=== PATIENT | female | born 1940 | race Caucasian/White ===

== ENCOUNTER 2018-01-03 00:53 | Inpatient (IN) | payer OTHER, MEDICARE ==
[~2018-01-03] VITALS: Ht 157.5 cm; Wt 76.0 kg
--- NOTE | 2018-01-03 01:01 | ED AMS/SEIZURE/WEAK/DIZZY ---
History of Present Illness General Chief Complaint: General Adult Stated Complaint: DOUGLASS, AMS, TROUBLE SPEAKING PER DAUGHTER Source: patient Exam Limitations: no limitations Vital Signs & Intake/Output Vital Signs & Intake/Output Vital Signs Date Time Temp Pulse Resp B/P B/P Pulse O2 O2 Flow FiO2 Mean Ox Delivery Rate 01/03 0308 98.3 01/03 0245 67 18 155/69 100 Room Air 01/03 0224 80 18 166/74 98 Room Air 01/03 0151 80 18 165/77 99 Room Air 01/03 0100 99 Room Air 01/03 0100 98.3 82 18 176/77 98 Room Air Allergies Coded Allergies: No Known Allergies (01/03/18) Reconcile Medications Aspirin/Acetaminophen/Caffeine (Excedrin Extra Strength Caplet) 250 MG-250 MG-65 MG TABLET 2 TAB PO PRN PRN HEADACHE (Reported) Dicyclomine Hydrochloride (Bentyl) 10 MG/ML AMPUL 20 MG PO DAILY (Reported) Diphenoxylate HCl/Atropine (Lomotil 2.5-0.025 MG Tablet) 2.5 MG-0.025 MG TABLET 1 TAB PO TID PRN STOMACH (Reported) Doxycycline Hyclate 20 MG TABLET LYME (Reported) Escitalopram Oxalate (Lexapro) 20 MG TABLET 1 TAB PO DAILY DEPRESSION ( Reported) Esomeprazole Magnesium (Nexium) 20 MG CAPSULE.DR 1 CAP PO DAILY GERD ( Reported) Folic Acid 1 MG TABLET 1 TAB PO DAILY SUPPLEMENT (Reported) LORazepam (Ativan) 1 MG TAB 1 TAB PO BID ANXIETY (Reported) Olmesartan/Amlodipin/Hcthiazid (Tribenzor 40-10-25 MG Tablet) 40 MG-10 MG-25 MG TABLET 1 TAB PO DAILY HTN (Reported) Prednisone 5 MG TAB.DS.PK 8 MG PO DAILY RA (Reported) Triage Nurses Notes Reviewed? yes Onset: Abrupt Duration: minute(s): Timing: single episode today Injury Environment: home Severity: moderate Modifying Factors: Improves With: rest. Associated Symptoms: DYSARTHRIA HPI: 77 YO WOMAN h/o polymyalgia rheumatica on steroids and methotrexate presents with several minute episode of dyarhthria and left arm weakness that began approximately 20 minutes prior to presentation and has largely self resolved. She notes also numbness in left arm and difficulty with comprehension which has since improved. She notes also occasional palpitations without chest pain or radiation. Her notes that for the past few weeks she has felt overall weakness and occasional confusion and headache. A few days ago, Dr. Bass discovered +lyme titers and she has been on doxy for the past several days. Past History Travel History Traveled to [place] past 21 day No Medical History Any Pertinent Medical History? see below for history Musculoskeletal: polymyalgia rheumatica Psychiatric: depression Surgical History Surgical History: non-contributory Psychosocial History What is your primary language Kazakh Family History Hx Contributory? No Review of Systems Review of Systems Constitutional: Reports: no symptoms. EENTM: Reports: no symptoms. Respiratory: Reports: no symptoms. Cardiovascular: Reports: no symptoms. GI: Reports: no symptoms. Genitourinary: Reports: no symptoms. Musculoskeletal: Reports: no symptoms. Skin: Reports: no symptoms. Neurological/Psychological: Reports: no symptoms. Hematologic/Endocrine: Reports: no symptoms. Immunologic/Allergic: Reports: no symptoms. All Other Systems: Reviewed and Negative Physical Exam Physical Exam General Appearance: well developed/nourished, no apparent distress Head: atraumatic, normal appearance Eyes: Bilateral: normal appearance, PERRL, EOMI. Ears, Nose, Throat: normal pharynx, normal ENT inspection Neck: normal inspection, supple, full range of motion Respiratory: normal breath sounds, chest non-tender, no respiratory distress, quiet respiration, lungs clear Cardiovascular: regular rate/rhythm Gastrointestinal: normal bowel sounds, soft, non-tender, no organomegaly Back: normal inspection, normal range of motion Extremities: normal range of motion Neurologic/Psych: awake, alert, oriented x 3, strength is symmetrical in upper and lower extremities. no dysarthria. speech is intelligible. no facial droop. Skin: intact, normal color, warm/dry Comments: dtr's are normal, light touch intact. Core Measures ACS in differential dx? No CVA/TIA Diagnosis Yes NIH Stroke Scale (24 Hours) NIH Stroke Scale (24 Hours) Response Value Level of Consciousness alert 0 LOC Questions answers both correctly 0 LOC Commands obeys both correctly 0 Best Gaze normal 0 Visual Barlow no visual loss 0 Facial Paresis normal 0 Motor Arm - Left no drift 0 Motor Arm - Right no drift 0 Motor Leg - Left no drift 0 Motor Leg - Right no drift 0 Limb Ataxia no ataxia 0 Sensory normal 0 Best Language no aphasia 0 Dysarthria normal articulation 0 Extinction and Inattention no neglect 0 Total 0 Date Last Known Well 01/03/18 tPA given? No Swallow Evaluation Pass Swallow eval date 01/03/18 Sepsis Present: No Sepsis Focused Exam Completed? No Progress Differential Diagnosis: tia, cva vs other. Plan of Care: Orders Procedure Date/time Status Nothing by Mouth 01/03 B Active Patient Data 01/03 025 Active Saline Lock 01/04 228 Active Misc Message 01/04 228 Active ED Holding Orders 01/04 228 Active Admit to inpatient 01/04 228 Active Vital Signs 01/04 228 Active Code Status 01/04 228 Active NIH Stroke Scale 01/03 0107 Active Intake & Output 01/03 005 Active TROPONIN LEVEL 01/03 58 Complete PARTIAL THROMBOPLASTIN TIME 01/03 58 Complete PROTHROMBIN TIME 01/03 58 Complete LIPASE 01/03 58 Complete HEPATIC FUNCTION PANEL 01/03 58 Complete CBC WITHOUT DIFFERENTIAL 01/03 58 Complete BASIC METABOLIC PANEL 01/03 58 Complete AMYLASE 01/03 58 Complete EKG 01/03 58 Active Current Medications Sig/Geoff Start time Last Medication Dose Stop Time Status Admin Potassium Chloride 10 MEQ ONCE ONE 01/03 0330 AC 01/03 0331 Acetaminophen 1,000 MG ONCE ONE 01/03 0300 UNVr 01/03 (Ofirmev) 01/03 0314 0308 N/A 1 UNIT (No Carrier) Laboratory Tests 01/03/18 0135: Anion Gap 16, Estimated GFR 37 L, BUN/Creatinine Ratio 14.3, Glucose 98, Calcium 9.5, Total Bilirubin 0.3, Direct Bilirubin 0.3, AST 21, ALT 25, Alkaline Phosphatase 64, Troponin I < 0.01, Total Protein 6.6, Albumin 3.9, Amylase 48, Lipase 83, PT 11.5, INR 1.05, APTT 28, CBC w Diff NO MAN DIFF REQ, RBC 3.93 L, MCV 91.2, MCH 30.9, MCHC 33.9, RDW 15.5 H, MPV 6.6 L, Gran % 78.8 H, Lymphocytes % 14.5 L, Monocytes % 6.3, Eosinophils % 0.3, Basophils % 0.1, Absolute Granulocytes 10.4 H, Absolute Lymphocytes 1.9, Absolute Monocytes 0.8 H, Absolute Eosinophils 0, Absolute Basophils 0 Diagnostic Imaging: Viewed by Me: CT Scan. Discussed w/RAD: CT Scan. Radiology Impression: PATIENT: MARTIN MCKENZIE PRESENT AGE: 77 PATIENT ACCOUNT NO: [id number] : 41 LOCATION: [facility] ORDERING PHYSICIAN: Dante Fry MD SERVICE DATE: 01/03/18 EXAM TYPE: CAT - CT HEAD WO IV CONTRAST EXAMINATION: CT HEAD WITHOUT CONTRAST CLINICAL INFORMATION: Left-sided weakness, difficulty finding words COMPARISON: None TECHNIQUE: Contiguous axial imaging was performed from the skull base to vertex without intravenous administration of contrast. DLP: 615.16 mGy-cm FINDINGS: There is no evidence of acute intracranial hemorrhage or territorial infarction. No abnormal mass effect or midline shift is seen. Carbajal to white matter differentiation is well preserved. No extra-axial fluid collections are identified. The ventricles are normal in size. Hypoattenuating foci in the bilateral basal ganglia favor chronic lacunar infarcts. Volume loss is noted. The osseous structures and soft tissues are normal. The mastoid air cells and visualized portions of the paranasal sinuses are well aerated. IMPRESSION: No acute intracranial pathology. This critical result was discussed with Dante Fry on 01/03/2018 1:34 AM, and it was ascertained that the content and urgency of the report was understood at the time of direct communication. DICTATED BY: Lizandro Meeks MD DATE/TIME DICTATED:01/03/18128 STAVE MILL HAND:AUREA DATE/TIME TRANSCRIBED:01/03/18128 CONFIDENTIAL, DO NOT COPY WITHOUT APPROPRIATE AUTHORIZATION. <Electronically signed in Other Vendor System> SIGNED BY: Lizandro Meeks MD 01/03/188, PATIENT: MARTIN MCKENZIE PRESENT AGE: 77 PATIENT ACCOUNT NO: [id number] : 41 LOCATION: [facility] ORDERING PHYSICIAN: Dante Fry MD SERVICE DATE: 01/03/18 EXAM TYPE: RAD - CT HEAD ANGIOGRAM; CT NECK ANGIOGRAM; XRY-PORTABLE CHEST XRAY EXAMINATION: CT ANGIOGRAM NECK AND HEAD CLINICAL INFORMATION: Left arm weakness, numbness COMPARISON: Noncontrast head CT from earlier today TECHNIQUE: Test bolus sequences followed by intravenous administration 95 mL of Optiray 320. Helical imaging was performed in the axial plane from the thoracic inlet to the skull vertex. Delayed postcontrast imaging of the head was also performed. The data was processed at the operating room technologist's workstation for generation of MIP sequences. Angled MIPs and volume rendered reformatted images were also generated at an offline 3D workstation. Stenoses are assessed in accordance with NASCET criteria unless otherwise indicated. DLP: 1196.95 mGy-cm FINDINGS: Neck CTA: There is a classic 3 vessel branching pattern of the aortic arch. There is atherosclerotic calcification along the aorta. No evidence of stenosis at the branch origins. Both vertebral arteries are patent throughout their extracranial cervical course. There is trace calcification at the right common carotid artery bifurcation without significant stenosis. There is calcification at the left common carotid artery bifurcation resulting in approximately 20% luminal narrowing. Otherwise normal appearance of the common and internal carotid arteries. Brain CTA: The right vertebral artery is dominant , and there is a focus of calcification along the intradural right vertebral artery. The left vertebral artery appears diminutive after the takeoff of the PICA branch. The basilar artery appears relatively diminutive along its course. 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 origin of left posterior cerebral artery is suspected, and the posterior cerebral arteries appear patent. Posterior communicating arteries are patent. Normal appearance of the intradural internal carotid arteries without focal stenosis. There is calcification along the cavernous portions of the internal carotid arteries bilaterally. Normal appearance of the anterior cerebral and middle cerebral arteries without focal occlusion or stenosis. Normal anterior communicating artery. Normal arborization of the middle cerebral arteries. CT Head: Assessment for acute intracranial hemorrhage is partially limited in the presence of IV contrast administration. No intracranial mass, extra-axial collection, or midline shift. The carbajal-white matter differentiation is preserved. No pathologic intra-axial enhancement or regional oligemia. No hydrocephalus. Mild volume loss is noted. There is opacification of the inferior left maxillary sinus suggesting mucous retention cyst. The mastoid air cells and remaining paranasal sinuses are well aerated. CT Neck: The thyroid gland and remaining cervical soft tissues are normal in appearance. There are degenerative changes in the lower cervical spine with disc space narrowing and osteophyte formation. Multilevel facet arthropathy is also noted. Upper Chest: There is a left upper lobe nodule measuring 4 mm on image 110/138 medially. IMPRESSION: 1. No proximal large artery occlusion identified. 2. 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 3. Left upper lobe 4 mm lung nodule. According to the UPDATED 2017 Fleischner Society recommendations, the advised follow-up imaging for solid nodules < 6 mm is: LOW RISK PATIENT: No routine follow-up. HIGH RISK PATIENT: Optional CT at 12 months. DICTATED BY: Lizandro Meeks MD DATE/TIME DICTATED:224 STAVE MILL HAND:AUREA DATE/TIME TRANSCRIBED:01/03/18224 CONFIDENTIAL, DO NOT COPY WITHOUT APPROPRIATE AUTHORIZATION. <Electronically signed in Other Vendor System> SIGNED BY: Lizandro Meeks MD 01/03/18 0247 Initial ED EKG: lbbb, no old to compare Departure Departure Disposition: STILL A PATIENT Condition: Stable Clinical Impression Primary Impression: CVA (cerebral vascular accident) Secondary Impressions: Hypokalemia Referrals: Sarwat Bass MD (PCP/Family) Departure Forms: Customer Survey General Discharge Information Comments 01/03/18, 1:12AM... discussed with neurology. 01/03/18, 1:35am... discussed with [facility]... non contrast ct, negative... angiogram underway. 01/03/18, 2:21am... discussed with [facility]... angiogram shows patent arteries, no acute clot. Critical Care Note Critical Care Note Critical Care Time: 30-74 min
--- NOTE | 2018-01-03 01:38 | CT SCAN REPORT ---
EXAMINATION: CT HEAD WITHOUT CONTRAST CLINICAL INFORMATION: Left-sided weakness, difficulty finding words COMPARISON: None TECHNIQUE: Contiguous axial imaging was performed from the skull base to vertex without intravenous administration of contrast. DLP: 615.16 mGy-cm FINDINGS: There is no evidence of acute intracranial hemorrhage or territorial infarction. No abnormal mass effect or midline shift is seen. Carbajal to white matter differentiation is well preserved. No extra-axial fluid collections are identified. The ventricles are normal in size. Hypoattenuating foci in the bilateral basal ganglia favor chronic lacunar infarcts. Volume loss is noted. The osseous structures and soft tissues are normal. The mastoid air cells and visualized portions of the paranasal sinuses are well aerated. IMPRESSION: No acute intracranial pathology. This critical result was discussed with Dante Fry on 01/03/2018 1:34 AM, and it was ascertained that the content and urgency of the report was understood at the time of direct communication.
[2018-01-03 01:44] LABS: ABSOLUTE EOSINOPHIL COUNT 0 /CUMM (0.0-0.7)
[2018-01-03 01:49] LABS: ABSOLUTE BASOPHIL COUNT 0 /CUMM (0.0-0.2); ABSOLUTE GRANULOCYTE CT 10.4 /CUMM (1.4-6.5); ABSOLUTE LYMPH COUNT 1.9 /CUMM (1.2-3.4); ABSOLUTE MONOCYTE COUNT 0.8 /CUMM (0.10-0.60); BASOPHIL % 0.1 % (0.0-2.0); EOSINOPHIL % 0.3 % (0-5); GRANULOCYTE % 78.8 % (42.2-75.2); HEMATOCRIT 35.9 % (37-47); MEAN CORPUSCULAR HGB 30.9 PG (27.0-31.0); MEAN CORPUSCULAR HGB CONC 33.9 G/DL (33.0-37.0); MEAN CORPUSCULAR VOLUME 91.2 FL (81.0-99.0); MEAN PLATELET VOLUME 6.6 FL (7.4-10.4); PLATELET COUNT 425 /CUMM (130-400); RBC DISTRIBUTION WIDTH 15.5 % (11.5-14.5); RED BLOOD CELL CT 3.93 /CUMM (4.20-5.40); WHITE BLOOD CELL COUNT 13.3 /CUMM (4.8-10.8)
[2018-01-03 01:52] LABS: PT 11.5 SEC (9.4-12.5); PTT 28 SEC (25-37)
[2018-01-03] MEDS ORDERED: NEXIUM20 M1 PO (02:05)
[2018-01-03] MEDS ORDERED: TRIBENZOR 40-11 EAC1 PO (02:05)
[2018-01-03] MEDS ORDERED: FOLIC ACID1 M1 PO (02:06)
[2018-01-03] MEDS ORDERED: LEXAPRO20 M1 PO (02:06)
[2018-01-03] MEDS ORDERED: ATIVAN1 M1 PO (02:07)
[2018-01-03] MEDS ORDERED: BENTYL10 MG/1 ML PO (02:07)
[2018-01-03] MEDS ORDERED: EXCEDRIN EXTRA1 EACH PO (02:08)
[2018-01-03] MEDS ORDERED: LOMOTIL 2.5-0.1 EACH PO (02:08)
[2018-01-03] MEDS ORDERED: DOXYCYCLINE HYC20 M1 PO (02:09)
--- NOTE | 2018-01-03 02:47 | RADIOLOGY REPORT ---
EXAMINATION: CT ANGIOGRAM NECK AND HEAD CLINICAL INFORMATION: Left arm weakness, numbness COMPARISON: Noncontrast head CT from earlier today TECHNIQUE: Test bolus sequences followed by intravenous administration 95 mL of Optiray 320. Helical imaging was performed in the axial plane from the thoracic inlet to the skull vertex. Delayed postcontrast imaging of the head was also performed. The data was processed at the imaging technologist's workstation for generation of MIP sequences. Angled MIPs and volume rendered reformatted images were also generated at an offline 3D workstation. Stenoses are assessed in accordance with NASCET criteria unless otherwise indicated. DLP: 1196.95 mGy-cm FINDINGS: Neck CTA: There is a classic 3 vessel branching pattern of the aortic arch. There is atherosclerotic calcification along the aorta. No evidence of stenosis at the branch origins. Both vertebral arteries are patent throughout their extracranial cervical course. There is trace calcification at the right common carotid artery bifurcation without significant stenosis. There is calcification at the left common carotid artery bifurcation resulting in approximately 20% luminal narrowing. Otherwise normal appearance of the common and internal carotid arteries. Brain CTA: The right vertebral artery is dominant, and there is a focus of calcification along the intradural right vertebral artery. The left vertebral artery appears diminutive after the takeoff of the PICA branch. The basilar artery appears relatively diminutive along its course. 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 origin of left posterior cerebral artery is suspected, and the posterior cerebral arteries appear patent. Posterior communicating arteries are patent. Normal appearance of the intradural internal carotid arteries without focal stenosis. There is calcification along the cavernous portions of the internal carotid arteries bilaterally. Normal appearance of the anterior cerebral and middle cerebral arteries without focal occlusion or stenosis. Normal anterior communicating artery. Normal arborization of the middle cerebral arteries. CT Head: Assessment for acute intracranial hemorrhage is partially limited in the presence of IV contrast administration. No intracranial mass, extra-axial collection, or midline shift. The herrera-white matter differentiation is preserved. No pathologic intra-axial enhancement or regional oligemia. No hydrocephalus. Mild volume loss is noted. There is opacification of the inferior left maxillary sinus suggesting mucous retention cyst. The mastoid air cells and remaining paranasal sinuses are well aerated. CT Neck: The thyroid gland and remaining cervical soft tissues are normal in appearance. There are degenerative changes in the lower cervical spine with disc space narrowing and osteophyte formation. Multilevel facet arthropathy is also noted. Upper Chest: There is a left upper lobe nodule measuring 4 mm on image 110/138 medially. IMPRESSION: 1. No proximal large artery occlusion identified. 2. 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 3. Left upper lobe 4 mm lung nodule. According to the UPDATED 2017 Fleischner Society recommendations, the advised follow-up imaging for solid nodules < 6 mm is: LOW RISK PATIENT: No routine follow-up. HIGH RISK PATIENT: Optional CT at 12 months.
--- NOTE | 2018-01-03 03:06 | History & Physical ---
General Information and HPI MD Statement: I have seen and personally examined MARTIN CONKLIN and documented this H&P. The patient is a 77 year old F who presented with a patient stated chief complaint of [blurry vision,difficuty talking]. Source of Information: patient, family Exam Limitations: no limitations History of Present Illness: Ms. 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 Per the daughter, patient was feeding well for the past 1 week. She was fatigued and lightheaded/dizzy which she attributed to her Lyme disease and side effects from methotrexate which was started 2 months ago. But last night around 10 PM she complained of blurry vision,also her anterior left side felt different , and she couldn't find her words to express herself. Presented to daughter she pinched her on both sides and the patient mentioned decreased sensations on her left upper and lower extremity. Patient reports having palpitations at the time of onset of her symptoms. States her symptoms are better but never resolved completely. Also reports severe headache, which comes and goes but describes it is a severe headache of her life. Daughter also mentions that her gait is off for the past 4 days and she feels very nauseous and lightheaded when she stands up from a sitting position. Denies any fall or loss of consciousness. Also endorses decreased by mouth intake, cold intolerance and chronic abdominal pain from her IBS. Denies any diarrhea, fever/chills, chest pain, difficulty breathing, recent cough, or any urinary symptoms. Patient is very energetic and talkative at her baseline and according to the daughter she is not at her baseline and continues to have a slow speech. Also remains forgetful, and does not remember her medications for recent conversation with the doctor. Allergies/Medications Allergies: Coded Allergies: No Known Allergies (01/03/18) Home Med list Aspirin/Acetaminophen/Caffeine (Excedrin Extra Strength Caplet) 250 MG-250 MG-65 MG TABLET 2 TAB PO PRN PRN HEADACHE (Reported) Atorvastatin Calcium (Lipitor) 20 MG TABLET 1 TAB PO DAILY HEART (Reported) Dicyclomine Hydrochloride (Bentyl) 10 MG/ML AMPUL 20 MG PO DAILY (Reported) Diphenoxylate HCl/Atropine (Lomotil 2.5-0.025 MG Tablet) 2.5 MG-0.025 MG TABLET 1 TAB PO TID PRN STOMACH (Reported) Doxycycline Hyclate 20 MG TABLET LYME (Reported) Esomeprazole Magnesium (Nexium) 20 MG CAPSULE.DR 1 CAP PO DAILY GERD ( Reported) Folic Acid 1 MG TABLET 1 TAB PO DAILY SUPPLEMENT (Reported) Hydroxychlorquine (Plaquenil) 200 MG TABLET 1 TAB PO DAILY SLE (Reported) LORazepam (Ativan) 1 MG TAB 1 TAB PO BID ANXIETY (Reported) Olmesartan/Amlodipin/Hcthiazid (Tribenzor 40-10-25 MG Tablet) 40 MG-10 MG-25 MG TABLET 1 TAB PO DAILY HTN (Reported) Paroxetine HCl 30 MG TABLET 1 TAB PO DAILY DEPRESSION (Reported) Prednisone 20 MG TABLET 1 TAB PO DAILY RA (Reported) Past History Travel History Traveled to [place] past 21 day No Medical History Neurological: migraine EENT: NONE Cardiovascular: hypertension Respiratory: NONE Gastrointestinal: GERD Hepatic: NONE Renal: NONE Musculoskeletal: rheumatoid arthritis, LYME DISEASE POLYMYALGICA RHEUMATICA APLS LUPUS, SLE, PMR, APLS Psychiatric: anxiety, depression Endocrine: adrenal insufficiency Blood Disorders: NONE Cancer(s): NONE 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 Home Who Do You Live With? spouse Services at Home: None Smoking Status: Never Smoked ETOH Use: denies use Illicit Drug Use: denies illicit drug use Functional Ability ADLs Independent: dressing, eating, toileting, bathing. Ambulation: independent IADLs Independent: shopping, housework, finances, food prep, telephone, transportation , medication admin. Review of Systems Review of Systems Constitutional: Reports: no symptoms. EENTM: Reports: blurred vision. Cardiovascular: Reports: palpitations. Respiratory: Reports: no symptoms. GI: Reports: nausea. Genitourinary: Reports: no symptoms. Musculoskeletal: Reports: no symptoms. Skin: Reports: no symptoms. Neurological/Psychological: Reports: confusion, headache, weakness. Hematologic/Endocrine: Reports: no symptoms. Immunologic/Allergic: Reports: no symptoms. All Other Systems: Reviewed and Negative Exam & Diagnostic Data Last 24 Hrs of Vital Signs/I&O Vital Signs Date Time Temp Pulse Resp B/P B/P Pulse O2 O2 Flow FiO2 Mean Ox Delivery Rate 01/03 0308 98.3 01/03 0245 67 18 155/69 100 Room Air 01/03 0224 80 18 166/74 98 Room Air 01/03 0151 80 18 165/77 99 Room Air 01/03 0100 99 Room Air 01/03 0100 98.3 82 18 176/77 98 Room Air Intake & Output 01/03 0800 01/03 0000 01/02 1600 Intake Total 300 Output Total Balance 300 Intake, IV 300 Physical Exam General Appearance Alert, Oriented X3, Cooperative, No Acute Distress Skin No Rashes, No Breakdown HEENT Atraumatic, PERRLA, EOMI, Mucous Membr. moist/pink Neck Supple, No JVD Cardiovascular Regular Rate, Normal S1, Normal S2, No Murmurs Lungs Clear to Auscultation, Normal Air Movement Abdomen Normal Bowel Sounds, Soft, No Tenderness Neurological Normal Speech, Strength at 5/5 X4 Ext, Normal Tone, Sensation Intact, Cranial Nerves 3-12 NL, Normal Cerebellar signs, unable to assess gait as patient was lightheaded when stood up Extremities No Clubbing, No Cyanosis, No Edema, Normal Pulses Last 24 Hrs of Labs/Adalberto: Laboratory Tests 01/03/18 0135: Anion Gap 16, Estimated GFR 37 L, BUN/Creatinine Ratio 14.3, Glucose 98, Calcium 9.5, Total Bilirubin 0.3, Direct Bilirubin 0.3, AST 21, ALT 25, Alkaline Phosphatase 64, Troponin I < 0.01, Total Protein 6.6, Albumin 3.9, Amylase 48, Lipase 83, PT 11.5, INR 1.05, APTT 28, CBC w Diff NO MAN DIFF REQ, RBC 3.93 L, MCV 91.2, MCH 30.9, MCHC 33.9, RDW 15.5 H, MPV 6.6 L, Gran % 78.8 H, Lymphocytes % 14.5 L, Monocytes % 6.3, Eosinophils % 0.3, Basophils % 0.1, Absolute Granulocytes 10.4 H, Absolute Lymphocytes 1.9, Absolute Monocytes 0.8 H, Absolute Eosinophils 0, Absolute Basophils 0 Diagnostic Data EKG Results NSR with LBBB Heart rate [address] HEAD ANGIOGRAM; CT NECK ANGIOGRAM; XRY-PORTABLE CHEST XRAY IMPRESSION: 1. No proximal large artery occlusion identified. 2. 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 3. Left upper lobe 4 mm lung nodule. According to the UPDATED 2017 Fleischner Society recommendations, the advised follow-up imaging for solid CT HEAD WO IV CONTRAST IMPRESSION: No acute intracranial pathology. Assessment/Plan Assessment: Ms. 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 Vitals on admission were temperature 98.3, heart rate 82, respiratory rate 18, BP 176/77 and O2 sat 98% on room air. Labs from 6 significant for WBC count of 13.3 with elevated granulocytes, platelet count 425, sodium 129, potassium 2.9, BUN/creatinine 20/1.[address] head and CT head and neck angiogram were negative for any acute pathology/ arterial occlusion. Problem list; 1. TIA/CVA 2. Leukocytosis; leg secondary to recently diagnosed Lyme disease. 3. Thrombocytosis; ?? Reactive to recent infection 4. GONZALO 5. Electrolyte Abn; Hyponatremia and hypokalemia 6. Prolonged QTc - Admit the patient to telemetry floor - Aspirin 325 mg and high-dose statin 1 - Head MRI - Troponin and EKG 3 - Echocardiogram - Neurology consult in a.m. - Cardiology consult - PT eval - Patient passed bedside swallow eval, will start on a diet. We'll obtain an official swallow well. - Continue doxycycline for Lyme disease. - GONZALO likely prerenal as patient reports decreased PO intake - Replete Potassium and repeat BEP in a.m. - Tigan for nausea. Avoid QTc prolonging agents. - Continue home medications DVT Prophylaxis; Alps and subcutaneous Lovenox Patient is full code As Ranked By This Provider Problem List: 1. Hypokalemia 2. TIA (transient ischemic attack) Core Measures/Misc (03/05) Acute Coronary Syndrome ACS Diagnosis: No Congestive Heart Failure Congestive Heart Failure Diagnosis No Cerebrovascular Accident CVA/TIA Diagnosis: Yes NIH Stroke Scale: Total 0 Date Last Known Well: 01/03/18 Time Last Known Well: 0430 Symptom Start Date: 01/02/18 Symptom Start Time: 0 tPA Risk/Benefit discussion I have discussed the risks, benefits, and alternatives of Alteplase treatment including: - If given promptly, can resolve or have major improvement in stroke symptoms. - Bleeding (hemorrhage) is the most common risk that can occur. - Bleeding may occur into the brain and cause~care home serious disability~ including - this is rare, affecting about 1% of patients. - Alternative treatments with proven benefit for patients with stroke include aspirin and care in a specialized unit where staff members pay careful attention to a variety of basic aspects of care. tPA given? No Reason tPA not ordered Medical Contraindication (ruling out stroke) Swallow Evaluation Pass VTE (View Protocol) VTE Risk Factors Age>40 No Mechanical VTE Prophylaxis d/t N/A MechProphylax Ordered No VTE Pharm Prophylaxis d/t NA PharmProphylax ordered Sepsis (View protocol) Sepsis Present: No If YES complete Sepsis Event Note If YES complete Sepsis Event Note
[2018-01-03] MEDS ORDERED: PREDNISONE20 M1 PO (04:31)
[2018-01-03] MEDS ORDERED: PAROXETINE HCL30 M1 PO (04:32)
[2018-01-03] MEDS ORDERED: PLAQUENIL200 M1 PO (04:33)
[2018-01-03] MEDS ORDERED: LIPITOR20 M2 PO (04:33)
[2018-01-03 06:29] VITALS: BP 146/60
[2018-01-03 08:04] LABS: ABSOLUTE BASOPHIL COUNT 0 /CUMM (0.0-0.2); ABSOLUTE EOSINOPHIL COUNT 0 /CUMM (0.0-0.7); ABSOLUTE GRANULOCYTE CT 12.1 /CUMM (1.4-6.5); ABSOLUTE LYMPH COUNT 2.3 /CUMM (1.2-3.4); ABSOLUTE MONOCYTE COUNT 1.2 /CUMM (0.10-0.60); BASOPHIL % 0.3 % (0.0-2.0); EOSINOPHIL % 0.2 % (0-5); GRANULOCYTE % 77.3 % (42.2-75.2); MEAN CORPUSCULAR HGB 31.3 PG (27.0-31.0); MEAN CORPUSCULAR HGB CONC 34.1 G/DL (33.0-37.0); MEAN CORPUSCULAR VOLUME 91.5 FL (81.0-99.0); MEAN PLATELET VOLUME 7.1 FL (7.4-10.4); PLATELET COUNT 350 /CUMM (130-400); RBC DISTRIBUTION WIDTH 14.8 % (11.5-14.5)
[2018-01-03 09:57] LABS: WHITE BLOOD CELL COUNT 15.6 /CUMM (4.8-10.8)
--- NOTE | 2018-01-03 10:04 | Admission Certification ---
Admission Certification Certification Statement - As attending physician, I certify that at the time of - admission, based on clinical presentation, severity of - symptoms, need for further diagnostic testing and - therapeutic interventions, and risk of adverse outcomes - without in-hospital treatment, in my clinical assessment, - this patient requires an acute hospital stay for a minimum - of two nights or longer. I have also considered psychsocial - factors such as support system, advanced age, financial - issues, cognitive issues, and failed out-patient treatments, - past re-admission history, safety of patient, and lack of - compliance as applicable. Specific rationale supporting this admission is: Change of mental status, confusion, headache, difficulty expressing herself. Recent positive Lyme titer
--- NOTE | 2018-01-03 10:07 | PN- Att Addend ---
Attending Addendum Attending Brief Note 77-year-old active white female was seen recently in my office and blood work results were positive for Lyme Lyme antibody was 4.45 after checking with her specialist was started on doxycycline. Patient last evening complained of severe headache has been confused maybe having some difficulty expressing herself for those reasons patient was brought into the emergency room on admission she had no fever this morning is 99.3. Originally had a CAT scan of the head with no abnormalities. She definitely is not acting herself she knew my name. Patient at this moment having an MRI of the head. A neurology consult was called, also my need an infectious disease input. Current Medications Sig/Geoff Start time Last Medication Dose Route Stop Time Status Admin Acetaminophen 1,000 MG ONCE ONE 01/03 0530 DC 01/03 N/A 1 UNIT IV 01/03 0544 0540 Acetaminophen 650 MG Q6P PRN 01/03 0330 AC PO Acetaminophen 0 .STK-MED ONE 01/03 0305 DC IV Acetaminophen 1,000 MG ONCE ONE 01/03 0300 DC 01/03 N/A 1 UNIT IV 01/03 0314 0308 Acetaminophen/ 1 TAB Q6-PRN PRN 01/03 0430 AC Butalbital/Caffeine PO Aspirin 325 MG ONCE ONE 01/03 0230 DC 01/03 PO 01/03 0231 0426 Aspirin 0 .STK-MED ONE 01/03 0230 DC PO Atorvastatin Calcium 20 MG DAILY 01/03 0900 AC PO Atorvastatin Calcium 80 MG ONCE ONE 01/03 0315 DC PO 01/03 0316 Dextrose/Sodium 1,000 ML Q13H 01/03 0545 AC 01/03 Chloride IV 0555 Doxycycline Hyclate 100 MG BID 01/03 2100 AC PO Doxycycline Hyclate 100 MG DAILY 01/03 0900 DC PO Folic Acid 1 MG DAILY 01/03 0900 AC PO Heparin Sodium 5,000 UNIT Q8 01/03 0600 AC 01/03 (Porcine) SC 0540 Lorazepam 1 MG BID 01/03 0900 DC PO Lorazepam 1 MG BID 01/03 0900 AC PO 01/10 0859 Lorazepam 0.5 MG ONCE ONE 01/03 0745 DC 01/03 IV 01/03 0746 0754 Omeprazole 20 MG DAILY AC 01/03 0700 AC PO Ondansetron HCl 4 MG ONCE ONE 01/03 0245 DC 01/03 IV 01/03 0246 0250 Ondansetron HCl 0 .STK-MED ONE 01/03 0234 DC .ROUTE Paroxetine HCl 30 MG DAILY 01/03 900 AC PO Potassium Chloride 10 MEQ ONCE ONE 01/03 0330 DC 01/03 IV 01/03 331 0336 Potassium Chloride 10 MEQ ONCE ONE 01/03 0230 DC 01/03 IV 01/03 023 0250 Potassium Chloride 20 MEQ ONCE ONE 01/03 0230 DC PO 01/03 023 Potassium Chloride 0 .STK-MED ONE 01/03 023 DC PO Prednisone 20 MG DAILY 01/03 900 AC PO Prochlorperazine 10 MG ONCE ONE 01/03 0745 DC 01/03 IV 01/03 0746 0921 Trimethobenzamide HCl 200 MG 4 TIMES/DAY PRN 01/03 0500 DC 01/03 IM 0539 Laboratory Tests 01/03/18 0615: Anion Gap 14, Estimated GFR 44 L, BUN/Creatinine Ratio 14.2, Hemoglobin A1c Pending, Troponin I 0.02, Triglycerides 100, Cholesterol 223 H, LDL Cholesterol , Calc 114, HDL Cholesterol 89 H, Cholesterol/HDL Ratio 3, CBC w Diff NO MAN DIFF REQ, RBC 3.50 L, MCV 91.5, MCH 31.3 H, MCHC 34.1, RDW 14.8 H, MPV 7.1 L , Gran % 77.3 H, Lymphocytes % 14.5 L, Monocytes % 7.7, Eosinophils % 0.2, Basophils % 0.3, Absolute Granulocytes 12.1 H, Absolute Lymphocytes 2.3, Absolute Monocytes 1.2 H, Absolute Eosinophils 0, Absolute Basophils 0 01/03/18 0135: Anion Gap 16, Estimated GFR 37 L, BUN/Creatinine Ratio 14.3, Glucose 98, Calcium 9.5, Total Bilirubin 0.3, Direct Bilirubin 0.3, AST 21, ALT 25, Alkaline Phosphatase 64, Troponin I < 0.01, Total Protein 6.6, Albumin 3.9, Amylase 48, Lipase 83, PT 11.5, INR 1.05, APTT 28, CBC w Diff NO MAN DIFF REQ, RBC 3.93 L, MCV 91.2, MCH 30.9, MCHC 33.9, RDW 15.5 H, MPV 6.6 L, Gran % 78.8 H, Lymphocytes % 14.5 L, Monocytes % 6.3, Eosinophils % 0.3, Basophils % 0.1, Absolute Granulocytes 10.4 H, Absolute Lymphocytes 1.9, Absolute Monocytes 0.8 H, Absolute Eosinophils 0, Absolute Basophils 0 Vital Signs Date Time Temp Pulse Resp B/P B/P Pulse O2 O2 Flow FiO2 Mean Ox Delivery Rate 01/03 0629 99.3 83 22 146/60 97 Room Air 01/03 0308 98.3 01/03 0245 67 18 155/69 100 Room Air 01/03 0224 80 18 166/74 98 Room Air 01/03 0151 80 18 165/77 99 Room Air 01/03 0100 99 Room Air 01/03 0100 98.3 82 18 176/77 98 Room Air Her sodium is low her potassium is low
--- NOTE | 2018-01-03 10:36 | MRI REPORT ---
EXAMINATION: MR BRAIN WITHOUT CONTRAST CLINICAL INFORMATION: Altered mental status. Difficulty talking. COMPARISON: CTA head and neck performed earlier the same day. TECHNIQUE: MRI of the brain without contrast was obtained using routine sequences. FINDINGS: There is no hydrocephalus, extra-axial surface collection, or herniation. There are T2 signal changes within the supratentorial white matter and central chaya, most likely chronic microangiopathy. There is global cerebral volume loss with a predilection for the high convexity parietal lobes. The major flow voids at the skull base are preserved. There is no acute infarct on diffusion-weighted imaging. There is no intracranial hemorrhage on the gradient recalled echo acquisition. The midline structures are normal. The cerebellar tonsils are normally positioned. The cerebellum and brainstem are normal. The craniocervical junction is normal. Osseous marrow signal intensity is homogenous. The visualized soft tissues are unremarkable. There is a retention cyst or polyp within the left maxillary sinus. There is mild mucosal thickening within the ethmoid air cells bilaterally. IMPRESSION: - No acute intracranial findings. No acute infarcts. - There is global cerebral volume loss with a predilection for the high convexity parietal lobes. - Mild to moderate chronic microangiopathy.
--- NOTE | 2018-01-03 12:50 | Cons- Neurology ---
General Information and HPI Consulting Request Date of Consult: 01/03/18 Requested By: Sarwat Bass MD History of Present Illness: 77-year-old female whose history was obtained both from the chart and her , at the bedside. Her describes a several week history of confusion and fatigue. He states that the patient is typically intact from a cognitive standpoint. She was brought to the hospital with additional complaints of blurry vision, dizziness, fatigue and headache. She has had recently poor oral intake. There have been some complaints of abdominal pain. She was recently started on oral medications for reported Lyme disease. However , there have been no rash or obvious tick bite apparently heard daughter thought that on the day of admission there was some left-sided weakness and stroke syndrome was questioned. Imaging has been negative in that regard. It may be pertinent to note that the patient has been under some stress as of late, reportedly due to her daughter's illness and responsibilities and paperwork which has fallen upon the patient in hopes of assisting her daughter however, the patient denies sury depression. Chart reflects a history of anxiety with depression. Allergies/Medications Allergies: Coded Allergies: No Known Allergies (01/03/18) Home Med List: Aspirin/Acetaminophen/Caffeine (Excedrin Extra Strength Caplet) 250 MG-250 MG-65 MG TABLET 2 TAB PO PRN PRN HEADACHE (Reported) Atorvastatin Calcium (Lipitor) 20 MG TABLET 1 TAB PO DAILY HEART (Reported) Dicyclomine Hydrochloride (Bentyl) 10 MG/ML AMPUL 20 MG PO DAILY (Reported) Diphenoxylate HCl/Atropine (Lomotil 2.5-0.025 MG Tablet) 2.5 MG-0.025 MG TABLET 1 TAB PO TID PRN STOMACH (Reported) Doxycycline Hyclate 20 MG TABLET LYME (Reported) Esomeprazole Magnesium (Nexium) 20 MG CAPSULE.DR 1 CAP PO DAILY GERD ( Reported) Folic Acid 1 MG TABLET 1 TAB PO DAILY SUPPLEMENT (Reported) Hydroxychlorquine (Plaquenil) 200 MG TABLET 1 TAB PO DAILY SLE (Reported) LORazepam (Ativan) 1 MG TAB 1 TAB PO BID ANXIETY (Reported) Olmesartan/Amlodipin/Hcthiazid (Tribenzor 40-10-25 MG Tablet) 40 MG-10 MG-25 MG TABLET 1 TAB PO DAILY HTN (Reported) Paroxetine HCl 30 MG TABLET 1 TAB PO DAILY DEPRESSION (Reported) Prednisone 20 MG TABLET 1 TAB PO DAILY RA (Reported) Review of Systems Review of Systems: Review of systems is positive for fatigue, dizziness, intermittent headaches, diminished oral intake, blurry vision and abdominal discomfort. 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 Home Who Do You Live With? spouse Services at Home: None Smoking Status: Never Smoked ETOH Use: denies use Illicit Drug Use: denies illicit drug use Functional Ability ADLs Independent: dressing, eating, toileting, bathing. Ambulation: independent IADLs Independent: shopping, housework, finances, food prep, telephone, transportation , medication admin. Exam & Diagnostic Data Vital Signs and I&O Vital Signs Date Time Temp Pulse Resp B/P B/P Pulse O2 O2 Flow FiO2 Mean Ox Delivery Rate 01/03 0629 99.3 83 22 146/60 97 Room Air 01/03 0308 98.3 01/03 0245 67 18 155/69 100 Room Air 01/03 0224 80 18 166/74 98 Room Air 01/03 0151 80 18 165/77 99 Room Air 01/03 0100 99 Room Air 01/03 0100 98.3 82 18 176/77 98 Room Air Intake & Output 01/03 1600 01/03 0800 01/03 0000 Intake Total 475 Output Total Balance 475 Intake, IV 375 Intake, Oral 100 Patient 161 lb Weight Weight Bed scale Measurement Method Elderly white female in no acute distress. Affect was flat. She was awake, alert and cooperative. Speech was fluent. There was no anomia. She was oriented to person, place and time. She was able to name the current president. She had some difficulty with four letter reversals and simple calculations .The head was normocephalic and atraumatic. Neck was supple. Pupils were equal. Extraocular movements were full. There was no field cut. The face was symmetric. Hearing is grossly normal. Tongue was midline. Motor examination showed no drift in the upper extremities. There is no focal or lateralizing weakness. Deep tendon reflexes were symmetric. Plantar responses were flexor. There was no ataxia on finger to nose testing. Joint position sense was intact. Light touch was normal. The gait was not evaluated. Assessment/Plan Assessment: Ms. Nielsen presents with a subacute encephalopathy. The history, examination and brain imaging would not suggest stroke syndrome. She has mild electrolyte disturbances however they do not appear significant enough to alter cognition. Her mild leukocytosis could be explained by her chronic steroid use. I question whether an element of presentation could be due to an affective disturbance however typically this is a diagnosis of exclusion. Recommendations: Would suggest gentle hydration, physiotherapy to assist with ambulation and return to baseline locomotion and correction of underlying metabolic disturbances. Her antibiotic treatment may be continued. Infectious disease consult should be considered. I would obtain a TSH and B12 level. Should no explanation be forthcoming for her gradual, global deterioration, I would also recommend a psychiatry evaluation. At this point in time, no further neurodiagnostic studies are contemplated Please feel free to call with any further questions. Consult Acknowledgment - Thank you for your consult request.
--- NOTE | 2018-01-03 13:09 | Cons- Cardiology ---
General Information and HPI Consulting Request Date of Consult: 01/03/18 Requested By: Sarwat Bass MD Reason for Consult: Neurologic abnormality; rule out TIA/CVA Source of Information: patient, family Exam Limitations: no limitations History of Present Illness: The patient is a pleasant 77-year-old female. Her regular trim machine adjuster is Dr. Mcgee in [place]. The patient is now admitted to the hospital with neurologic issues and possible TIA/CVA. Her past medical history is remarkable for hypertension, left bundle branch block, IBS, PMR, antiphospholipid antibody syndrome, lupus, rheumatoid arthritis, adrenal insufficiency secondary to long- standing steroid use, palpitations, and recently diagnosed Lyme disease. The patient was brought to the hospital by her daughter after an episode of left- sided weakness with some blurry vision and possibly some mental status changes last evening. The patient's notes that she has been increasingly fatigued. They say this all began when her methotrexate was started recently and her steroids were tapered off. However, due to worsening symptoms, her steroid dose was again increased. Patient also reports having had palpitations. She denies any chest discomfort or significant shortness of breath. The family is also noted some gait instability but no loss of consciousness or falling. Today, the patient is feeling somewhat better. Allergies/Medications Allergies: Coded Allergies: No Known Allergies (01/03/18) Home Med List: Amlodipine Besylate (Norvasc) 5 MG TABLET 1 TAB PO DAILY heart . Aspirin (Aspirin*) 81 MG TAB.CHEW 81 MG PO DAILY heart . Atorvastatin Calcium (Lipitor) 20 MG TABLET 1 TAB PO DAILY HEART (Reported) Dicyclomine Hydrochloride (Bentyl) 10 MG/ML AMPUL 20 MG PO DAILY (Reported) Diphenoxylate HCl/Atropine (Lomotil 2.5-0.025 MG Tablet) 2.5 MG-0.025 MG TABLET 1 TAB PO TID PRN STOMACH (Reported) Esomeprazole Magnesium (Nexium) 20 MG CAPSULE.DR 1 CAP PO DAILY GERD ( Reported) Folic Acid 1 MG TABLET 1 TAB PO DAILY SUPPLEMENT (Reported) Hydroxychlorquine (Plaquenil) 200 MG TABLET 1 TAB PO DAILY SLE (Reported) LORazepam (Ativan) 1 MG TAB 1 TAB PO BID ANXIETY (Reported) Paroxetine HCl 30 MG TABLET 1 TAB PO DAILY DEPRESSION (Reported) Prednisone 20 MG TABLET 1 TAB PO DAILY RA (Reported) Prochlorperazine Maleate (Compazine) 5 MG TABLET 1 TAB PO BID PRN nausea . Current Medications: Current Medications Sig/Geoff Start time Last Medication Dose Route Stop Time Status Admin Acetaminophen 1,000 MG ONCE ONE 01/03 0530 DC 01/03 N/A 1 UNIT IV 01/03 0544 0540 Acetaminophen 650 MG Q6P PRN 01/03 0330 AC PO Acetaminophen 0 .STK-MED ONE 01/03 0305 DC IV Acetaminophen 1,000 MG ONCE ONE 01/03 0300 DC 01/03 N/A 1 UNIT IV 01/03 0314 0308 Acetaminophen/ 1 TAB Q6-PRN PRN 01/03 0430 AC Butalbital/Caffeine PO Aspirin 325 MG ONCE ONE 01/03 0230 DC 01/03 PO 01/03 0231 0426 Aspirin 0 .STK-MED ONE 01/03 0230 DC PO Atorvastatin Calcium 20 MG DAILY 01/03 0900 AC PO Atorvastatin Calcium 80 MG ONCE ONE 01/03 0315 DC PO 01/03 0316 Dextrose/Sodium 1,000 ML Q13H 01/03 0545 AC 01/03 Chloride IV 0555 Doxycycline Hyclate 100 MG BID 01/03 2100 AC PO Doxycycline Hyclate 100 MG DAILY 01/03 0900 DC PO Folic Acid 1 MG DAILY 01/03 0900 AC PO Heparin Sodium 5,000 UNIT Q8 01/03 0600 AC 01/03 (Porcine) SC 0540 Lorazepam 1 MG BID 01/03 0900 DC PO Lorazepam 1 MG BID 01/03 0900 AC PO 01/10 0859 Lorazepam 0.5 MG ONCE ONE 01/03 0745 DC 01/03 IV 01/03 0746 0754 Magnesium Sulfate 1 GM Q2H 01/03 1230 AC Dextrose/Water 100 ML IV 01/03 1629 Omeprazole 20 MG DAILY AC 01/03 0700 AC PO Ondansetron HCl 4 MG ONCE ONE 01/03 0245 DC 01/03 IV 01/03 0246 0250 Ondansetron HCl 0 .STK-MED ONE 01/03 0234 DC .ROUTE Paroxetine HCl 30 MG DAILY 01/03 0900 AC PO Potassium Chloride 10 MEQ ONCE ONE 01/03 1230 DC IV 01/03 1231 Potassium Chloride 10 MEQ ONCE ONE 01/03 0330 DC 01/03 IV 01/03 0331 0336 Potassium Chloride 10 MEQ ONCE ONE 01/03 0230 DC 01/03 IV 01/03 0231 0250 Potassium Chloride 20 MEQ ONCE ONE 01/03 0230 DC PO 01/03 0231 Potassium Chloride 0 .STK-MED ONE 01/03 0230 DC PO Prednisone 20 MG DAILY 01/03 0900 AC PO Prochlorperazine 10 MG TIDPRN PRN 01/03 1230 AC IV Prochlorperazine 10 MG ONCE ONE 01/03 0745 DC 01/03 IV 01/03 0746 0921 Trimethobenzamide HCl 200 MG 4 TIMES/DAY PRN 01/03 0500 DC 01/03 IM 0539 Past History Travel History Traveled to [place] past 21 day No Medical History Blood Transfusion Hx: Yes Neurological: migraine EENT: NONE Cardiovascular: hypertension Respiratory: NONE Gastrointestinal: GERD Hepatic: NONE Renal: NONE Musculoskeletal: rheumatoid arthritis, LYME DISEASE POLYMYALGICA RHEUMATICA APLS LUPUS SLE, PMR, APLS Psychiatric: depression Endocrine: adrenal insufficiency Blood Disorders: NONE Cancer(s): NONE MANAGER ADOBE/Reproductive: NONE Surgical History Surgical History: hysterectomy Family History Relations & Conditions If Any: FATHER FH: heart disease Psychosocial History Where Do You Live? Home Who Do You Live With? spouse Services at Home: None Smoking Status: Never Smoked ETOH Use: denies use Illicit Drug Use: denies illicit drug use Functional Ability ADLs Independent: dressing, eating, toileting, bathing. Ambulation: independent IADLs Independent: shopping, housework, finances, food prep, telephone, transportation , medication admin. Exam & Diagnostic Data Vital Signs and I&O Vital Signs Date Time Temp Pulse Resp B/P B/P Pulse O2 O2 Flow FiO2 Mean Ox Delivery Rate 01/03 0629 99.3 83 22 146/60 97 Room Air 01/03 0308 98.3 01/03 0245 67 18 155/69 100 Room Air 01/03 0224 80 18 166/74 98 Room Air 01/03 0151 80 18 165/77 99 Room Air 01/03 0100 99 Room Air 01/03 0100 98.3 82 18 176/77 98 Room Air Intake & Output 01/03 1600 01/03 0800 /18 0000 / 1600 01/02 0800 01/02 0000 Intake Total 475 Output Total Balance 475 Intake, IV 375 Intake, Oral 100 Patient 161 lb Weight Weight Bed scale Measurement Method Labs/Adalberto Results: Laboratory Tests 01/03 01/03 4868 0125 Chemistry Sodium (137 - 145 mmol/L) 126 L Potassium (3.5 - 5.1 mmol/L) 3.0 L Chloride (98 - 107 mmol/L) 92 L Carbon Dioxide (22 - 30 mmol/L) 20 L Anion Gap (5 - 16) 14 BUN (7 - 17 mg/dL) 17 Creatinine (0.5 - 1.0 mg/dL) 1.2 H Estimated GFR (>60 ml/min) 44 L BUN/Creatinine Ratio (7 - 25 %) 14.2 Hemoglobin A1c (4.2 - 5.8 %) Pending Magnesium (1.6 - 2.3 mg/dL) 1.1 L Troponin I (< 0.11 ng/ml) Pending 0.02 Triglycerides (<150 mg/dL) 100 Cholesterol (<200 MG/DL) 223 H LDL Cholesterol, Calc (65 - 129 mg/dL) 114 HDL Cholesterol (40 - 60 mg/dL) 89 H Cholesterol/HDL Ratio (0.00 - 4.23 %) 3 Hematology CBC w Diff NO MAN DIFF REQ WBC (4.8 - 10.8 /CUMM) 15.6 H RBC (4.20 - 5.40 /CUMM) 3.50 L Hgb (12.0 - 16.0 G/DL) 10.9 L Hct (37 - 47 %) 32.0 L MCV (81.0 - 99.0 FL) 91.5 MCH (27.0 - 31.0 PG) 31.3 H MCHC (33.0 - 37.0 G/DL) 34.1 RDW (11.5 - 14.5 %) 14.8 H Plt Count (130 - 400 /CUMM) 350 MPV (7.4 - 10.4 FL) 7.1 L Gran % (42.2 - 75.2 %) 77.3 H Lymphocytes % (20.5 - 51.1 %) 14.5 L Monocytes % (1.7 - 9.3 %) 7.7 Eosinophils % (0 - 5 %) 0.2 Basophils % (0.0 - 2.0 %) 0.3 Absolute Granulocytes (1.4 - 6.5 /CUMM) 12.1 H Absolute Lymphocytes (1.2 - 3.4 /CUMM) 2.3 Absolute Monocytes (0.10 - 0.60 /CUMM) 1.2 H Absolute Eosinophils (0.0 - 0.7 /CUMM) 0 Absolute Basophils (0.0 - 0.2 /CUMM) 0 01/03 0135 Chemistry Sodium (137 - 145 mmol/L) 129 L Potassium (3.5 - 5.1 mmol/L) 2.9 *L Chloride (98 - 107 mmol/L) 91 L Carbon Dioxide (22 - 30 mmol/L) 23 Anion Gap (5 - 16) 16 BUN (7 - 17 mg/dL) 20 H Creatinine (0.5 - 1.0 mg/dL) 1.4 H Estimated GFR (>60 ml/min) 37 L BUN/Creatinine Ratio (7 - 25 %) 14.3 Glucose (65 - 99 mg/dL) 98 Calcium (8.4 - 10.2 mg/dL) 9.5 Total Bilirubin (0.2 - 1.3 mg/dL) 0.3 Direct Bilirubin (< 0.4 mg/dL) 0.3 AST (14 - 36 U/L) 21 ALT (9 - 52 U/L) 25 Alkaline Phosphatase (<127 U/L) 64 Troponin I (< 0.11 ng/ml) < 0.01 Total Protein (6.3 - 8.2 g/dL) 6.6 Albumin (3.5 - 5.0 g/dL) 3.9 Amylase (30 - 110 U/L) 48 Lipase (23 - 300 U/L) 83 Coagulation PT (9.4 - 12.5 SEC) 11.5 INR (0.90 - 1.19) 1.05 APTT (25 - 37 SEC) 28 Hematology CBC w Diff NO MAN DIFF REQ WBC (4.8 - 10.8 /CUMM) 13.3 H RBC (4.20 - 5.40 /CUMM) 3.93 L Hgb (12.0 - 16.0 G/DL) 12.2 Hct (37 - 47 %) 35.9 L MCV (81.0 - 99.0 FL) 91.2 MCH (27.0 - 31.0 PG) 30.9 MCHC (33.0 - 37.0 G/DL) 33.9 RDW (11.5 - 14.5 %) 15.5 H Plt Count (130 - 400 /CUMM) 425 H MPV (7.4 - 10.4 FL) 6.6 L Gran % (42.2 - 75.2 %) 78.8 H Lymphocytes % (20.5 - 51.1 %) 14.5 L Monocytes % (1.7 - 9.3 %) 6.3 Eosinophils % (0 - 5 %) 0.3 Basophils % (0.0 - 2.0 %) 0.1 Absolute Granulocytes (1.4 - 6.5 /CUMM) 10.4 H Absolute Lymphocytes (1.2 - 3.4 /CUMM) 1.9 Absolute Monocytes (0.10 - 0.60 /CUMM) 0.8 H Absolute Eosinophils (0.0 - 0.7 /CUMM) 0 Absolute Basophils (0.0 - 0.2 /CUMM) 0 Assessment/Plan Assessment/Plan Assessment: 1. Neurologic symptoms;/possible TIA/CVA 2. Recently diagnosed Lyme disease 3. Thrombocytosis 4. Abnormal ECG with left bundle branch block 5. History of hypertension 6. Electrolyte abnormalities with low sodium and low potassium 7. Acute renal insufficiency Recommendations: -Maintain patient on electronic device monitor for now -Await results of MRI -Neurology input pending -Please try to obtain copies of patient's recent outpatient evaluation. The patient's family reports she had an echocardiogram within the last 2 weeks. -Further plans after outpatient data reviewed. -Consider checking TSH and B12 levels -Check orthostatic heart rate and blood pressure every shift 2. - Consult Acknowledgment - Thank you for your consult request.
[2018-01-03 15:41] VITALS: BP 118/60
[2018-01-03 21:53] VITALS: BP 120/62
--- NOTE | 2018-01-04 06:51 | PN- Housestaff ---
Subjective Follow-up For: Subacute encephalopathy Complaints: no complaints Tele-Events Since Last Visit: NSR 61-72 Subjective: no complaints/no acute events Review of Systems Constitutional: Reports: see HPI. Objective Last 24 Hrs of Vital Signs/I&O Vital Signs Date Time Temp Pulse Resp B/P B/P Pulse O2 O2 Flow FiO2 Mean Ox Delivery Rate 01/04 1416 9.9 76 17 109/57 96 Room Air 01/04 0654 98.5 68 18 122/64 96 Room Air 01/03 2153 98.4 71 18 120/62 96 Room Air Intake & Output 01/04 1600 01/04 0800 01/04 0000 Intake Total 801 112 4324 Output Total Balance 554 366 3203 Intake, IV 600 600 Intake, Oral 360 480 Number 0 0 Bowel Movements Patient 187 lb Weight Weight Bed scale Measurement Method Physical Exam General Appearance: Alert, Oriented X3, Cooperative, No Acute Distress Skin: No Rashes, No Breakdown, No Significant Lesion Skin Temp/Moisture Exam: Cool/Dry Sepsis Skin Exam (color): Normal for Ethnicity HEENT: Atraumatic Neck: Supple Cardiovascular: Regular Rate, Normal S1, Normal S2, No Murmurs Lungs: Clear to Auscultation, Normal Air Movement Abdomen: Normal Bowel Sounds, Soft, No Tenderness, No Hepatospenomegaly Neurological: Normal Speech, Strength at 5/5 X4 Ext, Normal Tone, Sensation Intact Extremities: No Clubbing, No Cyanosis, No Edema Assessment/Plan Assessment: Ms. 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 Vitals: stable Problems: * Subacute encephalopathy * Neurologic symptoms with no obvious evidence of TIA/CVA * Recently diagnosed Lyme disease * Thrombocytosis * Abnormal ECG with left bundle branch block * hyponatremia/hypokalemia * Acute renal insufficiency * Very mild aortic stenosis noted on echo cardiac * History of hypertension PLAN: * As per neurology, the history, examination and brain imaging ruled out a stroke syndrome. Also, her mild electrolyte disturbances (hyponatremia/ hypokalemia) however they do not appear significant enough to alter cognition. Her condition could be explained by an affective disorder. We wante to request a psych consult, but the patient's daughter strictly refused and took the suggestion as offensive. * Doxy was stopped * Leukocytosis can be due to the ch. steroid use * Pt eval recs home PT on d.c Problem List: 1. Thrombocytosis 2. LBBB (left bundle branch block) 3. GONZALO (acute kidney injury) 4. Lyme disease 5. Aortic stenosis 6. Hypertension 7. Encephalopathy Pain Ratin Pain Location: none Pain Goal: Remain pain free Pain Plan: as per pain pathway Tomorrow's Labs & Rationales: cbc, bep
[2018-01-04 06:54] VITALS: BP 122/64
--- NOTE | 2018-01-04 07:06 | ECHOCARDIOGRAM REPORT ---
MARTIN MCKENZIE Age: 77 : 1940 Gender: F Exam Date: 01/03/2018 16:29 Exam Location: [address] [place] [address] Ht (in): Wt (lb): BSA: BP: 146 / 60 Ordering Physician: Ella Bashir MD Referring Physician: Ana Cobb MD Technologist: Jesika Pride [facility] Room Number: [id number] Indications: Stroke Rhythm: Sinus Technical Quality: Fair FINDINGS Left Ventricle Normal size left ventricle. Left ventricular wall thickness increased. Normal left ventricular ejection fraction estimated at 60-65%. Right Ventricle Right ventricle not well visualized, grossly normal. Right Atrium Normal right atrial size. Left Atrium Mild left atrial dilatation. Mitral Valve Mitral valve thickened. Moderate mitral annular calcification. Mild mitral regurgitation. Aortic Valve Trileaflet aortic valve. Diffuse thickening of the aortic valve cusps with reduced excursion. Mild aortic stenosis. Tricuspid Valve Tricuspid valve not well visualized, grossly normal. Trace to mild tricuspid regurgitation. Pulmonic Valve Structurally normal pulmonic valve. Mild pulmonic regurgitation. Pericardium No pericardial effusion. Great Vessels Normal size aortic root and proximal ascending aorta. CONCLUSIONS 1. Mild aortic stenosis is present with a PG 18 mmHg; MG 10 mmHg; BARTOLO 2.4 cm2. 2. Mitral leaflet thickening is present with moderate to severe anular calcification and minimal to mild mitral insufficiency with mild left atrial enlargement. 3. There is no pericardial fluid detected. 4. The left ventricular chamber size and ejection fraction are normal. 5. The right heart structures are grossly normal with minimal to mild tricuspid and pulmonic insufficiency. The RV systolic pressure was not accurately assessed. 6. Mild left ventricular diastolic dysfunction is present. Ana Cobb M.D. (Electronically Signed) Final Date: 04 January 2018 07:05 MEASUREMENTS (Male / Female) Normal Values 2D ECHO LV Diastolic Diameter PLAX 3.7 cm 4.2 - 5.9 / 3.9 - 5.3 cm LV Systolic Diameter PLAX 2.0 cm 2.1 - 4.0 cm LV Fractional Shortening PLAX 45.9 % 25 - 46 % LV Ejection Fraction 2D Teich 78.1 % IVS Diastolic Thickness 1.3 cm LVPW Diastolic Thickness 1.3 cm LV Relative Wall Thickness 0.7 RV Internal Dim ED PLAX 2.6 cm 1.9 - 3.8 cm LVOT Diameter 2.2 cm Aortic Root Diameter 3.2 cm LA Systolic Diameter LX 3.7 cm 3.0 - 4.0 / 2.7 - 3.8 cm LA Volume 32.0 cm 18 - 58 / 22 - 52 cm Ascending Aorta Diameter 3.0 cm DOPPLER AV Peak Velocity 226.0 cm/s AV Peak Gradient 20.4 mmHg AV Mean Velocity 154.0 cm/s AV Mean Gradient 11.0 mmHg AV Velocity Time Integral 42.5 cm LVOT Peak Velocity 145.0 cm/s LVOT Peak Gradient 8.4 mmHg LVOT Mean Velocity 109.0 cm/s LVOT Mean Gradient 5.0 mmHg LVOT Velocity Time Integral 29.6 cm LVOT Stroke Volume 112.5 cm AV Area Cont Eq vti 2.6 cm AV Area Cont Eq pk 2.4 cm MV Peak Velocity 148.0 cm/s MV Peak Gradient 8.8 mmHg MV Mean Velocity 81.3 cm/s MV Mean Gradient 3.0 mmHg Mitral E Point Velocity 78.4 cm/s Mitral A Point Velocity 144.0 cm/s Mitral E to A Ratio 0.5 MV PHT Velocity 111.0 cm/s MV Deceleration Wilcox 337.0 cm/s MV Pressure Half Time 98.8 ms MV Area PHT 2.2 cm MV Deceleration Time 462.0 ms TR Peak Velocity 152.0 cm/s TR Peak Gradient 9.2 mmHg Right Atrial Pressure 5.0 mmHg Pulmonary Artery Systolic Pressure 14.2 mmHg Right Ventricular Systolic Pressure 14.2 mmHg PV Peak Velocity 127.0 cm/s PV Peak Gradient 6.5 mmHg PV Mean Velocity 85.2 cm/s PV Mean Gradient 3.0 mmHg PV Velocity Time Integral 26.8 cm LV E' Lateral Velocity 7.7 cm/s Mitral E to LV E' Lateral Ratio 10.2 LV E' Septal Velocity 5.0 cm/s Mitral E to LV E' Septal Ratio 15.8
[2018-01-04 08:43] LABS: ABSOLUTE BASOPHIL COUNT 0 /CUMM (0.0-0.2); ABSOLUTE EOSINOPHIL COUNT 0.1 /CUMM (0.0-0.7); ABSOLUTE GRANULOCYTE CT 4.6 /CUMM (1.4-6.5); ABSOLUTE MONOCYTE COUNT 0.5 /CUMM (0.10-0.60); BASOPHIL % 0.1 % (0.0-2.0); EOSINOPHIL % 1.7 % (0-5); GRANULOCYTE % 64.1 % (42.2-75.2); HEMATOCRIT 31.5 % (37-47); MEAN CORPUSCULAR HGB 30.7 PG (27.0-31.0); MEAN CORPUSCULAR HGB CONC 33.5 G/DL (33.0-37.0); MEAN CORPUSCULAR VOLUME 91.6 FL (81.0-99.0); MEAN PLATELET VOLUME 7.1 FL (7.4-10.4); PLATELET COUNT 335 /CUMM (130-400); RBC DISTRIBUTION WIDTH 15.5 % (11.5-14.5); RED BLOOD CELL CT 3.44 /CUMM (4.20-5.40)
[2018-01-04 10:06] LABS: WHITE BLOOD CELL COUNT 7.2 /CUMM (4.8-10.8)
--- NOTE | 2018-01-04 11:17 | Patient Discharge Instructions ---
Discharge Instructions General Discharge Information You were seen/treated for: Transient Ischemic Attack-which was ruled out Watch for these problems: chest pain, weakness, loss of sensation, change or loss of vision, change or loss of consciousness, fever, chills: If yes to any of these, please visit your nearest emergency room Special Instructions: -Please follow up with your PCP 1 week after discharge -Please follow up with your neurologist 1 week after discharge -Please follow up with your doffer 1 week after discharge Diet Recommended Diet: Heart Healthy Activity Activity Self Limited: Yes Acute Coronary Syndrome Inclusion Criteria At DC or during hospital stay patient has or had the following: ACS DIAGNOSIS No Discharge Core Measures Meds if any: Prescribed or Continued at Discharge Meds if any: NOT Prescribed or Continued at Discharge Congestive Heart Failure Inclusion Criteria At DC or during hospital stay patient has or had the following: CHF DIAGNOSIS No Discharge Core Measures Meds if any: Prescribed or Continued at Discharge Meds if any: NOT Prescribed or Continued at Discharge Cerebrovascular accident Inclusion Criteria At DC or during hospital stay patient has or had the following: CVA/TIA Diagnosis No Discharge Core Measures Meds if any: Prescribed or Continued at Discharge Meds if any: NOT Prescribed or Continued at Discharge Venous thromboembolism Inclusion Criteria VTE Diagnosis No VTE Type NONE VTE Confirmed by (Test) NONE Discharge Core Measures - Per Current guidelines, there needs to be overlap - treatment for the first 5 days of Warfarin therapy. - If discharged on Warfarin prior to 5 days of - overlap therapy, the patient will need to be - assessed for post discharge needs including - *Post discharge parental anticoagulation - *Warfarin and/or parental anticoagulation education - *Follow up date to check INR post discharge At least 5 days overlap therapy as Inpatient No Meds if any: Prescribed or Continued at Discharge Note: Overlap Therapy is Warfarin and Anticoagulant Meds if any: NOT Prescribed or Continued at Discharge
--- NOTE | 2018-01-04 14:07 | PN- Pulmonary ---
Subjective HPI/Critical Care Issues: Covering for Dr. Bass Event data reviewed Doing well this morning however continues to be fatigued No significant diarrhea patient had diarrhea before Still has low potassium All her neurological symptoms have completely resolved per patient. The strength is normal. Met with her daughter and her at the bedside Medications reviewed Objective Current Medications: Current Medications Sig/Geoff Start time Last Medication Dose Route Stop Time Status Admin Acetaminophen 1,000 MG ONCE ONE 01/03 1545 DC 01/03 N/A 1 UNIT IV 01/03 1559 1537 Acetaminophen 650 MG Q6P PRN 01/03 0330 AC PO Acetaminophen/ 1 TAB Q6-PRN PRN 01/03 0430 AC Butalbital/Caffeine PO Aspirin 81 MG DAILY 01/04 1345 AC 01/04 PO 1346 Atorvastatin Calcium 20 MG DAILY 01/03 0900 AC PO Dextrose/Sodium 1,000 ML Q13H 01/03 0545 DC 01/04 Chloride IV 0303 Doxycycline Hyclate 100 MG BID 01/03 2100 DC PO Folic Acid 1 MG DAILY 01/03 09 AC PO Heparin Sodium 5,000 UNIT Q8 01/03 0600 AC 01/04 (Porcine) SC 1354 Lorazepam 0.5 MG ONCE ONE 01/03 2300 DC 01/03 IV 01/03 2301 2302 Lorazepam 1 MG BID 01/03 0900 AC 01/04 PO 01/10 0859 0914 Magnesium Oxide 400 MG ONE ONE 01/04 1030 DC 01/04 PO 01/04 1031 1116 Magnesium Sulfate 1 GM Q2H 01/03 1230 DC 01/03 Dextrose/Water 100 ML IV 01/03 1629 1433 Omeprazole 20 MG DAILY AC 01/03 07 AC PO Paroxetine HCl 30 MG DAILY 01/03 0900 AC 01/04 PO 0914 Potassium Chloride 40 MEQ BID 01/05 0900 AC PO Potassium Chloride 20 MEQ Q1H 01/04 2000 UNVr IV 01/04 2101 Potassium Chloride 20 MEQ Q1H 01/04 1345 UNVr 01/04 IV 01/04 1446 1347 Potassium Chloride 40 MEQ ONCE ONE 01/04 1110 DC 01/04 PO 01/04 1111 1116 Prednisone 20 MG DAILY 01/03 0900 AC 01/04 PO 0914 Prochlorperazine 10 MG TIDPRN PRN 01/03 1230 AC 01/04 IV 1346 Vital Signs & I&O Last 24 Hrs of Vitals and I&O: Vital Signs Date Time Temp Pulse Resp B/P B/P Pulse O2 O2 Flow FiO2 Mean Ox Delivery Rate 01/04 0654 98.5 68 18 122/64 96 Room Air 01/03 2153 98.4 71 18 120/62 96 Room Air 01/03 1541 98.9 69 20 118/60 95 Room Air Intake & Output 01/04 1600 01/04 0800 01/04 0000 Intake Total 600 1080 Output Total Balance 600 1080 Intake, IV 600 600 Intake, Oral 480 Number 0 0 Bowel Movements Patient 187 lb Weight Weight Bed scale Measurement Method Laboratory Tests 01/04 01/03 0630 1258 Chemistry Sodium (137 - 145 mmol/L) 135 L Potassium (3.5 - 5.1 mmol/L) 3.0 L Chloride (98 - 107 mmol/L) 103 Carbon Dioxide (22 - 30 mmol/L) 23 Anion Gap (5 - 16) 9 BUN (7 - 17 mg/dL) 11 Creatinine (0.5 - 1.0 mg/dL) 0.8 Estimated GFR (>60 ml/min) > 60 BUN/Creatinine Ratio (7 - 25 %) 13.8 Magnesium (1.6 - 2.3 mg/dL) 1.8 Troponin I (< 0.11 ng/ml) 0.02 Hematology CBC w Diff NO MAN DIFF REQ WBC (4.8 - 10.8 /CUMM) 7.2 RBC (4.20 - 5.40 /CUMM) 3.44 L Hgb (12.0 - 16.0 G/DL) 10.6 L Hct (37 - 47 %) 31.5 L MCV (81.0 - 99.0 FL) 91.6 MCH (27.0 - 31.0 PG) 30.7 MCHC (33.0 - 37.0 G/DL) 33.5 RDW (11.5 - 14.5 %) 15.5 H Plt Count (130 - 400 /CUMM) 335 MPV (7.4 - 10.4 FL) 7.1 L Gran % (42.2 - 75.2 %) 64.1 Lymphocytes % (20.5 - 51.1 %) 27.2 Monocytes % (1.7 - 9.3 %) 6.9 Eosinophils % (0 - 5 %) 1.7 Basophils % (0.0 - 2.0 %) 0.1 Absolute Granulocytes (1.4 - 6.5 /CUMM) 4.6 Absolute Lymphocytes (1.2 - 3.4 /CUMM) 2.0 Absolute Monocytes (0.10 - 0.60 /CUMM) 0.5 Absolute Eosinophils (0.0 - 0.7 /CUMM) 0.1 Absolute Basophils (0.0 - 0.2 /CUMM) 0 01/03 01/03 0615 0135 Chemistry Sodium (137 - 145 mmol/L) 126 L 129 L Potassium (3.5 - 5.1 mmol/L) 3.0 L 2.9 *L Chloride (98 - 107 mmol/L) 92 L 91 L Carbon Dioxide (22 - 30 mmol/L) 20 L 23 Anion Gap (5 - 16) 14 16 BUN (7 - 17 mg/dL) 17 20 H Creatinine (0.5 - 1.0 mg/dL) 1.2 H 1.4 H Estimated GFR (>60 ml/min) 44 L 37 L BUN/Creatinine Ratio (7 - 25 %) 14.2 14.3 Glucose (65 - 99 mg/dL) 98 Hemoglobin A1c (4.2 - 5.8 %) 5.5 Calcium (8.4 - 10.2 mg/dL) 9.5 Magnesium (1.6 - 2.3 mg/dL) 1.1 L Total Bilirubin (0.2 - 1.3 mg/dL) 0.3 Direct Bilirubin (< 0.4 mg/dL) 0.3 AST (14 - 36 U/L) 21 ALT (9 - 52 U/L) 25 Alkaline Phosphatase (<127 U/L) 64 Troponin I (< 0.11 ng/ml) 0.02 < 0.01 Total Protein (6.3 - 8.2 g/dL) 6.6 Albumin (3.5 - 5.0 g/dL) 3.9 Triglycerides (<150 mg/dL) 100 Cholesterol (<200 MG/DL) 223 H LDL Cholesterol, Calc (65 - 129 mg/dL) 114 HDL Cholesterol (40 - 60 mg/dL) 89 H Cholesterol/HDL Ratio (0.00 - 4.23 %) 3 Amylase (30 - 110 U/L) 48 Lipase (23 - 300 U/L) 83 Vitamin B12 (239 - 931 pg/mL) > 1000 H TSH (0.270 - 4.200 uIU/mL) 2.130 Coagulation PT (9.4 - 12.5 SEC) 11.5 INR (0.90 - 1.19) 1.05 APTT (25 - 37 SEC) 28 Hematology CBC w Diff NO MAN DIFF REQ NO MAN DIFF REQ WBC (4.8 - 10.8 /CUMM) 15.6 H 13.3 H RBC (4.20 - 5.40 /CUMM) 3.50 L 3.93 L Hgb (12.0 - 16.0 G/DL) 10.9 L 12.2 Hct (37 - 47 %) 32.0 L 35.9 L MCV (81.0 - 99.0 FL) 91.5 91.2 MCH (27.0 - 31.0 PG) 31.3 H 30.9 MCHC (33.0 - 37.0 G/DL) 34.1 33.9 RDW (11.5 - 14.5 %) 14.8 H 15.5 H Plt Count (130 - 400 /CUMM) 350 425 H MPV (7.4 - 10.4 FL) 7.1 L 6.6 L Gran % (42.2 - 75.2 %) 77.3 H 78.8 H Lymphocytes % (20.5 - 51.1 %) 14.5 L 14.5 L Monocytes % (1.7 - 9.3 %) 7.7 6.3 Eosinophils % (0 - 5 %) 0.2 0.3 Basophils % (0.0 - 2.0 %) 0.3 0.1 Absolute Granulocytes (1.4 - 6.5 /CUMM) 12.1 H 10.4 H Absolute Lymphocytes (1.2 - 3.4 /CUMM) 2.3 1.9 Absolute Monocytes (0.10 - 0.60 /CUMM) 1.2 H 0.8 H Absolute Eosinophils (0.0 - 0.7 /CUMM) 0 0 Absolute Basophils (0.0 - 0.2 /CUMM) 0 0 Impression/Plan Impression/Plan Impression/Plan: General Appearance Alert, Oriented X3, Cooperative, No Acute Distress Skin No Rashes, No Breakdown HEENT Atraumatic, PERRLA, EOMI, Mucous Membr. moist/pink Neck Supple, No JVD Cardiovascular Regular Rate, Normal S1, Normal S2, No Murmurs Lungs Clear to Auscultation, Normal Air Movement Abdomen Normal Bowel Sounds, Soft, No Tenderness Neurological Normal Speech, Strength at 5/5 X4 Ext, Normal Tone, Sensation Intact, Cranial Nerves 3-12 NL, no defecit Extremities No Clubbing, No Cyanosis, No Edema, Normal Pulses SIGNIFICANT DATA Telemetry showed no atrial fibrillation MRI reviewed which showed no acute findings but did show global cerebral volume loss with cerebral atrophy Chest x-ray reviewed CT head reviewed? Basilar tip aneurysm 3 mm need follow-up Left upper lobe 4 mm lung nodule needs follow-up Neurology note reviewed and they did say that she has subacute encephalopathy there was no stroke situation Other blood work reviewed noted Patient has chronic anemia, her PT PTT was unremarkable Her Lyme titer reviewed which was elevated but her Western blot test was negative for both IgG and IgM patient has finished 2 weeks of Doxy IMPRESSION This is a lady with history of a hypertension, left bundle branch, block, irritable bowel, polymyalgia rheumatic on prednisone, previous history of arthritis, adrenal insufficiency due to long-term steroid use, recent treatment with 2 weeks of doxycycline for Lyme titer which was positive however breast and bottle was negative, came in with left-sided weakness and blurry vision which is now completely resolved. Her issues include Neurological symptoms suggestive of either TIA. There was no stroke. Neurology evaluation reviewed and they did not think that she was having any strokelike physiology and they attribute some of her symptoms to the mild deltoid abnormality and? Affective disorder No evidence of atrial fibrillation in this hospital with occasional PACs thyroid function tests unremarkable Polymyalgia rheumatica on steroids Significant hypo-kalemia causing some of her fatigue cause probably related to her recent diarrhea which seems to have stopped. Patient has been on Lomotil. And she was also on hydrochlorothiazide with try benzo or with Benicar and amlodipine and hydrochlorothiazide which was causing her low potassium Initial mild thrombocytosis now improved History of hypertension much better Acute kidney injury upon admission now improved probably related to dehydration from diarrhea and hydrochlorothiazide RECOMMENDATION Start aspirin 81, patient is not in atrial fibrillation no indication for systemic anticoagulation. Discussed with cardiology. Continue current medications Needs aggressive potassium replacement. 4 runs of 10 mEq of potassium IV, patient was advised to take 40 mEq of potassium for 3 doses today Continue statin Blood pressure is relatively low we will hold off on starting some of her medications. At this time if the blood pressure is more than 140 we will start her on amlodipine 5 mg, then we will start her on low-dose losartan 25 mg. We will discontinue her tribenzor Physical therapy evaluation Continue other medications Discontinue doxycycline Continue some of her medicines for her irritable bowel Continue her outpatient Paxil and other medicines Patient does not wish to have a psychiatric evaluation at this time Discussed with patient's family extensively
[2018-01-04 14:16] VITALS: BP 109/57
--- NOTE | 2018-01-04 15:44 | PN- Cardiology ---
Subjective Subjective: No significant change from a cardiac perspective. No new cardiac issues or symptoms noted. Objective Vital Signs and I&Os Vital Signs Date Time Temp Pulse Resp B/P B/P Pulse O2 O2 Flow FiO2 Mean Ox Delivery Rate 01/04 1416 9.9 76 17 109/57 96 Room Air 01/04 0654 98.5 68 18 122/64 96 Room Air 01/03 2153 98.4 71 18 120/62 96 Room Air Intake & Output 01/04 1600 01/04 0800 01/04 0000 01/03 1600 01/03 0800 01/03 0000 Intake Total 925 152 8336 840 475 Output Total Balance 480 545 7042 840 475 Intake, IV 600 600 600 375 Intake, Oral 360 480 240 100 Number 0 0 1 Bowel Movements Patient 187 lb 161 lb Weight Weight Bed scale Bed scale Measurement Method Current Medications: Current Medications Sig/Geoff Start time Last Medication Dose Route Stop Time Status Admin Acetaminophen 1,000 MG ONCE ONE 01/03 1545 DC 01/03 N/A 1 UNIT IV 01/03 1559 1537 Acetaminophen 650 MG Q6P PRN 01/03 0330 AC PO Acetaminophen/ 1 TAB Q6-PRN PRN 01/03 0430 AC Butalbital/Caffeine PO Aspirin 81 MG DAILY 01/04 1345 AC 01/04 PO 1346 Atorvastatin Calcium 20 MG DAILY 01/03 0900 AC PO Dextrose/Sodium 1,000 ML Q13H 01/03 0545 DC 01/04 Chloride IV 0303 Doxycycline Hyclate 100 MG BID 01/03 2100 DC PO Folic Acid 1 MG DAILY 01/03 0900 AC PO Heparin Sodium 5,000 UNIT Q8 01/03 0600 AC 01/04 (Porcine) SC 1354 Lorazepam 0.5 MG ONCE ONE 01/03 2300 DC 01/03 IV 01/03 2301 2302 Lorazepam 1 MG BID 01/03 0900 AC 01/04 PO 01/10 0859 0914 Magnesium Oxide 400 MG ONE ONE 01/04 1030 DC 01/04 PO 01/04 1031 1116 Magnesium Sulfate 1 GM Q2H 01/03 1230 DC 01/03 Dextrose/Water 100 ML IV 01/03 1629 1433 Omeprazole 20 MG DAILY AC 01/03 07 AC PO Paroxetine HCl 30 MG DAILY 01/03 0900 AC 01/04 PO 0914 Potassium Chloride 40 MEQ BID 01/05 09 AC PO Potassium Chloride 20 MEQ Q1H 01/05 2000 DC IV 01/04 2101 Potassium Chloride 10 MEQ Q1H 01/05 2000 AC IV 01/04 210 Potassium Chloride 10 MEQ Q1H 01/04 1415 DC 01/04 IV 01/04 1516 1347 Potassium Chloride 20 MEQ Q1H 01/04 1345 DC 01/04 IV 01/04 1446 1347 Potassium Chloride 40 MEQ ONCE ONE 01/04 1110 DC 01/04 PO 01/04 1111 1116 Prednisone 20 MG DAILY 01/03 0900 AC 01/04 PO 0914 Prochlorperazine 10 MG TIDPRN PRN 01/03 1230 AC 01/04 IV 1346 Results Last 48 Hrs of Labs/Mics: Laboratory Tests 01/04/18 0630: Anion Gap 9, Estimated GFR > 60, BUN/Creatinine Ratio 13.8, Magnesium 1.8, CBC w Diff NO MAN DIFF REQ, RBC 3.44 L, MCV 91.6, MCH 30.7, MCHC 33.5, RDW 15.5 H, MPV 7.1 L, Gran % 64.1, Lymphocytes % 27.2, Monocytes % 6.9, Eosinophils % 1.7, Basophils % 0.1, Absolute Granulocytes 4.6, Absolute Lymphocytes 2.0, Absolute Monocytes 0.5, Absolute Eosinophils 0.1, Absolute Basophils 0 01/03/18 1258: Troponin I 0.02 01/03/18 0615: Anion Gap 14, Estimated GFR 44 L, BUN/Creatinine Ratio 14.2, Hemoglobin A1c 5.5 , Magnesium 1.1 L, Troponin I 0.02, Triglycerides 100, Cholesterol 223 H, LDL Cholesterol, Calc 114, HDL Cholesterol 89 H, Cholesterol/HDL Ratio 3, Vitamin B12 > 1000 H, TSH 2.130, CBC w Diff NO MAN DIFF REQ, RBC 3.50 L, MCV 91.5, MCH 31.3 H, MCHC 34.1, RDW 14.8 H, MPV 7.1 L, Gran % 77.3 H, Lymphocytes % 14.5 L, Monocytes % 7.7, Eosinophils % 0.2, Basophils % 0.3, Absolute Granulocytes 12.1 H, Absolute Lymphocytes 2.3, Absolute Monocytes 1.2 H, Absolute Eosinophils 0, Absolute Basophils 0 01/03/18 0135: Anion Gap 16, Estimated GFR 37 L, BUN/Creatinine Ratio 14.3, Glucose 98, Calcium 9.5, Total Bilirubin 0.3, Direct Bilirubin 0.3, AST 21, ALT 25, Alkaline Phosphatase 64, Troponin I < 0.01, Total Protein 6.6, Albumin 3.9, Amylase 48, Lipase 83, PT 11.5, INR 1.05, APTT 28, CBC w Diff NO MAN DIFF REQ, RBC 3.93 L, MCV 91.2, MCH 30.9, MCHC 33.9, RDW 15.5 H, MPV 6.6 L, Gran % 78.8 H, Lymphocytes % 14.5 L, Monocytes % 6.3, Eosinophils % 0.3, Basophils % 0.1, Absolute Granulocytes 10.4 H, Absolute Lymphocytes 1.9, Absolute Monocytes 0.8 H, Absolute Eosinophils 0, Absolute Basophils 0 Assessment/Plan Assessment/Plan Assessment: 1. Neurologic symptoms with no obvious evidence of TIA/CVA 2. Recently diagnosed Lyme disease 3. Thrombocytosis 4. Abnormal ECG with left bundle branch block 5. History of hypertension 6. Electrolyte abnormalities with low sodium and low potassium 7. Acute renal insufficiency 8. Very mild aortic stenosis noted on echo cardiac Recommendations: -No significant arrhythmias have been detected on the quality assurance monitor chassis -MRI results noted -Neurology input noted -Patient's outpatient recent cardiology records have been reviewed. -No obvious cardiac issues at the present time. Continue as per the medical team -From a cardiac standpoint, I do not see any acute issues. The patient can follow-up with her regular rock star Dr. Mcgee post discharge. Continue telemetry? No
[2018-01-04] MEDS ORDERED: LEXAPRO20 M1 PO (16:26)
[2018-01-04 22:01] VITALS: BP 110/46
[2018-01-05 06:18] VITALS: BP 102/60
--- NOTE | 2018-01-05 06:46 | PN- Housestaff ---
Subjective Follow-up For: Subacute encephalopathy Complaints: no complaints Tele-Events Since Last Visit: NSR. HR 59-88 Subjective: Pt examined lying confortably in bed. No complaints/no acute events overnight Review of Systems Constitutional: Reports: see HPI. Objective Last 24 Hrs of Vital Signs/I&O Vitals Stable overnight and this morning Physical Exam General Appearance: Alert, Oriented X3, Cooperative, No Acute Distress Skin: No Rashes, No Breakdown, No Significant Lesion Skin Temp/Moisture Exam: Cool/Dry Sepsis Skin Exam (color): Normal for Ethnicity HEENT: Atraumatic Neck: Supple Cardiovascular: Regular Rate, Normal S1, Normal S2, No Murmurs Lungs: Clear to Auscultation, Normal Air Movement Abdomen: Normal Bowel Sounds, Soft, No Tenderness, No Hepatospenomegaly Neurological: Normal Speech, Strength at 5/5 X4 Ext, Normal Tone, Sensation Intact Extremities: No Clubbing, No Cyanosis, No Edema Assessment/Plan Assessment: Ms. 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 Vitals: stable No complaints/no acute events overnight Problems: * Subacute encephalopathy * Neurologic symptoms with no obvious evidence of TIA/CVA * Lyme disease-completed antibiotics course recently * Thrombocytosis * Leukocytosis-due to chr steroid use due to polymyalgia rheumatica * Abnormal ECG with left bundle branch block * hyponatremia/hypokalemia * Acute renal insufficiency * Very mild aortic stenosis noted on echo * History of hypertension PLAN: * Plan is to d/c to home today * Resolved neurological symptoms suggestive of either TIA or electrolyte imbalance. Stroke was ruled out. mild deltoid abnormality? and affective disorder? Pt refused psych consult * Lyme titer reviewed which was elevated but her Western blot test was negative for both IgG and IgM patient has finished 2 weeks of Doxy * Discontinue her home high blood pressure medication HCTZ * Cont. aspirin and statin * Pt eval recs home PT on d.c * Pt will f/u with PCP, registered nurse behavioral health, neurologist after d/c Problem List: 1. LBBB (left bundle branch block) 2. Thrombocytosis 3. Encephalopathy 4. GONZALO (acute kidney injury) 5. Lyme disease 6. Hypertension 7. Aortic stenosis Pain Ratin Pain Location: none Pain Goal: Remain pain free Pain Plan: folloe pain pathway Tomorrow's Labs & Rationales: not needed
[2018-01-05 07:59] LABS: ABSOLUTE BASOPHIL COUNT 0.1 /CUMM (0.0-0.2); ABSOLUTE EOSINOPHIL COUNT 0.1 /CUMM (0.0-0.7); ABSOLUTE LYMPH COUNT 1.6 /CUMM (1.2-3.4); ABSOLUTE MONOCYTE COUNT 0.7 /CUMM (0.10-0.60); BASOPHIL % 0.7 % (0.0-2.0); EOSINOPHIL % 1.3 % (0-5); GRANULOCYTE % 76.4 % (42.2-75.2); HEMATOCRIT 29.8 % (37-47); MEAN CORPUSCULAR HGB 31.3 PG (27.0-31.0); MEAN CORPUSCULAR HGB CONC 33.6 G/DL (33.0-37.0); MEAN CORPUSCULAR VOLUME 93.1 FL (81.0-99.0); MEAN PLATELET VOLUME 7.3 FL (7.4-10.4); PLATELET COUNT 305 /CUMM (130-400); RBC DISTRIBUTION WIDTH 15.6 % (11.5-14.5); WHITE BLOOD CELL COUNT 10.5 /CUMM (4.8-10.8)
[2018-01-05] MEDS ORDERED: ASPIRIN81 M4 PO ×2 (09:33→09:39)
[2018-01-05] MEDS ORDERED: COMPAZINE5 M1 PO ×2 (09:38→09:39)
[2018-01-05] MEDS ORDERED: NORVASC5 M1 PO ×2 (09:38→09:39)
[2018-01-05] MEDS ORDERED: PREDNISONE5 M2 PO (10:58)
--- NOTE | 2018-01-05 13:58 | PN- Pulmonary ---
Subjective HPI/Critical Care Issues: Doing well stable for dc Potassium is increased No further diarrhea Feel much better Blood pressure still trending low Laboratory Tests 01/05 01/04 0624 2300 Chemistry Sodium (137 - 145 mmol/L) 135 L Potassium (3.5 - 5.1 mmol/L) 4.8 5.0 Chloride (98 - 107 mmol/L) 106 Carbon Dioxide (22 - 30 mmol/L) 20 L Anion Gap (5 - 16) 8 BUN (7 - 17 mg/dL) 16 Creatinine (0.5 - 1.0 mg/dL) 0.8 Estimated GFR (>60 ml/min) > 60 BUN/Creatinine Ratio (7 - 25 %) 20.0 Magnesium (1.6 - 2.3 mg/dL) 1.9 Hematology CBC w Diff NO MAN DIFF REQ WBC (4.8 - 10.8 /CUMM) 10.5 RBC (4.20 - 5.40 /CUMM) 3.20 L Hgb (12.0 - 16.0 G/DL) 10.0 L Hct (37 - 47 %) 29.8 L MCV (81.0 - 99.0 FL) 93.1 MCH (27.0 - 31.0 PG) 31.3 H MCHC (33.0 - 37.0 G/DL) 33.6 RDW (11.5 - 14.5 %) 15.6 H Plt Count (130 - 400 /CUMM) 305 MPV (7.4 - 10.4 FL) 7.3 L Gran % (42.2 - 75.2 %) 76.4 H Lymphocytes % (20.5 - 51.1 %) 14.8 L Monocytes % (1.7 - 9.3 %) 6.8 Eosinophils % (0 - 5 %) 1.3 Basophils % (0.0 - 2.0 %) 0.7 Absolute Granulocytes (1.4 - 6.5 /CUMM) 8.0 H Absolute Lymphocytes (1.2 - 3.4 /CUMM) 1.6 Absolute Monocytes (0.10 - 0.60 /CUMM) 0.7 H Absolute Eosinophils (0.0 - 0.7 /CUMM) 0.1 Absolute Basophils (0.0 - 0.2 /CUMM) 0.1 01/04 0630 Chemistry Sodium (137 - 145 mmol/L) 135 L Potassium (3.5 - 5.1 mmol/L) 3.0 L Chloride (98 - 107 mmol/L) 103 Carbon Dioxide (22 - 30 mmol/L) 23 Anion Gap (5 - 16) 9 BUN (7 - 17 mg/dL) 11 Creatinine (0.5 - 1.0 mg/dL) 0.8 Estimated GFR (>60 ml/min) > 60 BUN/Creatinine Ratio (7 - 25 %) 13.8 Magnesium (1.6 - 2.3 mg/dL) 1.8 Hematology CBC w Diff NO MAN DIFF REQ WBC (4.8 - 10.8 /CUMM) 7.2 RBC (4.20 - 5.40 /CUMM) 3.44 L Hgb (12.0 - 16.0 G/DL) 10.6 L Hct (37 - 47 %) 31.5 L MCV (81.0 - 99.0 FL) 91.6 MCH (27.0 - 31.0 PG) 30.7 MCHC (33.0 - 37.0 G/DL) 33.5 RDW (11.5 - 14.5 %) 15.5 H Plt Count (130 - 400 /CUMM) 335 MPV (7.4 - 10.4 FL) 7.1 L Gran % (42.2 - 75.2 %) 64.1 Lymphocytes % (20.5 - 51.1 %) 27.2 Monocytes % (1.7 - 9.3 %) 6.9 Eosinophils % (0 - 5 %) 1.7 Basophils % (0.0 - 2.0 %) 0.1 Absolute Granulocytes (1.4 - 6.5 /CUMM) 4.6 Absolute Lymphocytes (1.2 - 3.4 /CUMM) 2.0 Absolute Monocytes (0.10 - 0.60 /CUMM) 0.5 Absolute Eosinophils (0.0 - 0.7 /CUMM) 0.1 Absolute Basophils (0.0 - 0.2 /CUMM) 0 Objective Current Medications: Current Medications Sig/Geoff Start time Last Medication Dose Route Stop Time Status Admin Acetaminophen 1,000 MG ONCE ONE 01/05 245 CAN IV 01/05 0246 Acetaminophen 500 MG ONCE ONE 01/05 245 DC 01/05 N/A 1 UNIT IV 01/05 025 0247 Acetaminophen 650 MG Q6P PRN 01/03 0330 AC PO Acetaminophen/ 1 TAB Q6-PRN PRN 01/03 0430 AC Butalbital/Caffeine PO Aspirin 81 MG DAILY 01/04 1345 AC 01/05 PO 0828 Atorvastatin Calcium 20 MG DAILY 01/03 09 AC PO Folic Acid 1 MG DAILY 01/03 09 AC PO Heparin Sodium 5,000 UNIT Q8 01/03 06 AC 01/05 (Porcine) SC 0630 Lorazepam 1 MG BID 01/03 09 AC 01/05 PO 01/10 0859 0829 Omeprazole 20 MG DAILY AC 01/03 07 AC 01/05 PO 0626 Paroxetine HCl 30 MG DAILY 01/03 09 AC 01/05 PO 0829 Potassium Chloride 40 MEQ BID 01/05 09 DC PO Potassium Chloride 10 MEQ Q1H 01/04 2100 DC IV 01/04 2201 Potassium Chloride 20 MEQ Q1H 01/05 2000 DC IV 01/04 2101 Potassium Chloride 10 MEQ Q1H 01/05 2000 CAN IV 01/04 210 Potassium Chloride 40 MEQ ONCE ONE 01/05 2000 CAN PO 01/04 2001 Potassium Chloride 40 MEQ BID 01/04 1615 DC 01/04 PO 2253 Potassium Chloride 10 MEQ Q1H 01/04 1415 DC 01/04 IV 01/04 1516 1859 Potassium Chloride 20 MEQ Q1H 01/04 1345 DC 01/04 IV 01/04 1446 1347 Prednisone 20 MG DAILY 01/03 09 AC 01/05 PO 0829 Prochlorperazine 10 MG TIDPRN PRN 01/03 1230 AC 01/04 IV 2249 Vital Signs & I&O Last 24 Hrs of Vitals and I&O: Vital Signs Date Time Temp Pulse Resp B/P B/P Pulse O2 O2 Flow FiO2 Mean Ox Delivery Rate 01/05 618 98.3 61 18 102/60 96 Room Air 01/04 2201 98.5 58 18 110/46 96 Room Air 01/04 1416 9.9 76 17 109/57 96 Room Air Intake & Output 01/05 1600 01/05 0800 01/05 0000 Intake Total 290 680 Output Total Balance 290 680 Intake, IV 50 200 Intake, Oral 240 480 Number 1 0 Bowel Movements Patient 168 lb Weight Weight Bed scale Measurement Method Impression/Plan Impression/Plan Impression/Plan: General Appearance Alert, Oriented X3, Cooperative, No Acute Distress Skin No Rashes, No Breakdown HEENT Atraumatic, PERRLA, EOMI, Mucous Membr. moist/pink Neck Supple, No JVD Cardiovascular Regular Rate, Normal S1, Normal S2, No Murmurs Lungs Clear to Auscultation, Normal Air Movement Abdomen Normal Bowel Sounds, Soft, No Tenderness Neurological Normal Speech, Strength at 5/5 X4 Ext, Normal Tone, Sensation Intact, Cranial Nerves 3-12 NL, no defecit Extremities No Clubbing, No Cyanosis, No Edema, Normal Pulses SIGNIFICANT DATA Telemetry showed no atrial fibrillation MRI reviewed which showed no acute findings but did show global cerebral volume loss with cerebral atrophy Chest x-ray reviewed CT head reviewed? Basilar tip aneurysm 3 mm need follow-up Left upper lobe 4 mm lung nodule needs follow-up Neurology note reviewed and they did say that she has subacute encephalopathy there was no stroke situation Other blood work reviewed noted Patient has chronic anemia, her PT PTT was unremarkable Her Lyme titer reviewed which was elevated but her Western blot test was negative for both IgG and IgM patient has finished 2 weeks of Doxy IMPRESSION This is a lady with history of a hypertension, left bundle branch, block, irritable bowel, polymyalgia rheumatic on prednisone, previous history of arthritis, adrenal insufficiency due to long-term steroid use, recent treatment with 2 weeks of doxycycline for Lyme titer which was positive however breast and bottle was negative, came in with left-sided weakness and blurry vision which is now completely resolved. Her issues include * Resolved neurological symptoms suggestive of either TIA or electrolyte imbalance versus other issues as noted by neurology. There was no stroke by MRI. Neurology evaluation reviewed and they did not think that she was having any strokelike physiology and they attribute some of her symptoms to the mild deltoid abnormality and? Affective disorder * No evidence of atrial fibrillation in this hospital with occasional PACs thyroid function tests unremarkable * Polymyalgia rheumatica on steroids * Significant hypokalemia causing some of her fatigue cause probably related to her recent diarrhea which seems to have stopped. Patient has been on Lomotil. And she was also on hydrochlorothiazide * Initial mild thrombocytosis now improved * History of hypertension much better, with blood pressure running low off anti- hypertensives * Acute kidney injury upon admission now improved probably related to dehydration from diarrhea and hydrochlorothiazide RECOMMENDATION Now stable Ready for discharge Start aspirin 81 mg Discontinue her home high blood pressure medication Only started on amlodipine 5 mg first Patient to see her psychometrist on Monday per daughter and they can address her blood pressure issues once her blood pressure improves. Currently her blood pressure is running low. Patient and her daughter was educated about this. They need to come off hydrochlorothiazide. Continue statin Continue outpatient medications See EMR reviewed Patient and the daughter was educated. They going to see her psychometrist on Monday and subsequently she will be followed by PCP
--- NOTE | 2018-01-05 15:15 | PN- Cardiology ---
Subjective Subjective: Doing well. No new cardiac issues. Discharge pending. Objective Vital Signs and I&Os Vital Signs Date Time Temp Pulse Resp B/P B/P Pulse O2 O2 Flow FiO2 Mean Ox Delivery Rate 01/05 0618 98.3 61 18 102/60 96 Room Air 01/04 2201 98.5 58 18 110/46 96 Room Air Intake & Output 01/05 1600 01/05 0800 01/05 0000 01/04 1600 01/04 0800 01/04 0000 Intake Total 290 680 119 135 7903 Output Total Balance 290 680 998 648 1206 Intake, IV 50 200 600 600 Intake, Oral 240 480 360 480 Number 1 0 0 0 Bowel Movements Patient 168 lb 187 lb Weight Weight Bed scale Bed scale Measurement Method Physical Exam: General Appearance: well developed/nourished, alert, awake, oriented Head: normal HEENT: Normal Neck: supple, JVP normal, carotid upstrokes normal bilaterally, no masses or thyromegaly Respiratory: chest non-tender, clear to auscultation and percussion bilaterally Cardiovascular: regular rate/rhythm, normal S1, S2, 2/6 systolic ejection murmur Abdomen: normal bowel sounds, soft, non-tender Extremities: normal inspection, no edema Vascular: Pulses are 2+ and equal bilaterally Neurologic: Grossly normal/nonfocal Current Medications: Current Medications Sig/Geoff Start time Last Medication Dose Route Stop Time Status Admin Acetaminophen 1,000 MG ONCE ONE 01/05 0245 CAN IV 01/05 0246 Acetaminophen 500 MG ONCE ONE 01/05 0245 DC 01/05 N/A 1 UNIT IV 01/05 0252 0247 Acetaminophen 650 MG Q6P PRN 01/03 0330 DCD PO Acetaminophen/ 1 TAB Q6-PRN PRN 01/03 0430 DCD Butalbital/Caffeine PO Aspirin 81 MG DAILY 01/04 1345 DCD 01/05 PO 0828 Atorvastatin Calcium 20 MG DAILY 01/03 900 DCD PO Folic Acid 1 MG DAILY 01/03 900 DCD PO Heparin Sodium 5,000 UNIT Q8 01/03 600 DCD 01/05 (Porcine) SC 0630 Lorazepam 1 MG BID 01/03 900 DCD 01/05 PO 01/10 0859 0829 Omeprazole 20 MG DAILY AC 01/03 700 DCD 01/05 PO 0626 Paroxetine HCl 30 MG DAILY 01/03 900 DCD 01/05 PO 0829 Potassium Chloride 40 MEQ BID 01/05 0900 DC PO Potassium Chloride 10 MEQ Q1H 01/04 2100 DC IV 01/04 2201 Potassium Chloride 20 MEQ Q1H 01/05 2000 DC IV 01/04 2101 Potassium Chloride 10 MEQ Q1H 01/05 2000 CAN IV 01/04 2101 Potassium Chloride 40 MEQ ONCE ONE 01/05 2000 CAN PO 01/04 2001 Potassium Chloride 40 MEQ BID 01/04 1615 DC 01/04 PO 2253 Potassium Chloride 10 MEQ Q1H 01/04 1415 DC 01/04 IV 01/04 1516 1859 Prednisone 20 MG DAILY 01/03 0900 DCD 01/05 PO 08 Prochlorperazine 10 MG TIDPRN PRN 01/03 1230 DCD 01/04 IV 2249 Results Last 48 Hrs of Labs/Mics: Laboratory Tests 01/05/18 0624: Anion Gap 8, Estimated GFR > 60, BUN/Creatinine Ratio 20.0, Magnesium 1.9, CBC w Diff NO MAN DIFF REQ, RBC 3.20 L, MCV 93.1, MCH 31.3 H, MCHC 33.6, RDW 15.6 H , MPV 7.3 L, Gran % 76.4 H, Lymphocytes % 14.8 L, Monocytes % 6.8, Eosinophils % 1.3, Basophils % 0.7, Absolute Granulocytes 8.0 H, Absolute Lymphocytes 1.6, Absolute Monocytes 0.7 H, Absolute Eosinophils 0.1, Absolute Basophils 0.1 01/04/18 2300: 01/04/18 0630: Anion Gap 9, Estimated GFR > 60, BUN/Creatinine Ratio 13.8, Magnesium 1.8, CBC w Diff NO MAN DIFF REQ, RBC 3.44 L, MCV 91.6, MCH 30.7, MCHC 33.5, RDW 15.5 H, MPV 7.1 L, Gran % 64.1, Lymphocytes % 27.2, Monocytes % 6.9, Eosinophils % 1.7, Basophils % 0.1, Absolute Granulocytes 4.6, Absolute Lymphocytes 2.0, Absolute Monocytes 0.5, Absolute Eosinophils 0.1, Absolute Basophils 0 Assessment/Plan Assessment/Plan Assessment: 1. Neurologic symptoms with no obvious evidence of TIA/CVA 2. Recently diagnosed Lyme disease 3. Thrombocytosis 4. Abnormal ECG with left bundle branch block 5. History of hypertension 6. Electrolyte abnormalities with low sodium and low potassium 7. Acute renal insufficiency 8. 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 -No obvious cardiac issues at the present time. Continue as per the medical team -From a cardiac standpoint, I do not see any acute issues. The patient can follow-up with her regular cab starter Dr. Mcgee post discharge. Continue telemetry? No
--- NOTE | 2018-01-05 17:21 | Discharge Summary ---
Visit Information Visit Dates Admission Date: 01/03/18 Discharge Date: 01/05/18 Hospital Course Course Attending Physician: Sarwat Bass MD Primary Care Physician: Sarwat Bass MD Hospital Course: Ms. 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 Vitals on admission were temperature 98.3, heart rate 82, respiratory rate 18, BP 176/77 and O2 sat 98% on room air. Labs: significant for WBC count of 13.3 with elevated granulocytes, platelet count 425, sodium 129, potassium 2.9, BUN/creatinine 20/1.[address] head and CT head and neck angiogram were negative for any acute pathology/ arterial occlusion. Problem list: * Subacute encephalopathy: Neurologic symptoms with no obvious evidence of TIA/ CVA * Recently diagnosed Lyme disease * Thrombocytosis * Abnormal ECG with left bundle branch block * hyponatremia/hypokalemia * Acute renal insufficiency * Very mild aortic stenosis noted on echo cardiac * History of hypertension Hospital course: Pt was admitted to the tele floor for cardiac monitoring and possibility of a tia/stroke(which was alter ruled out) 1. Resolved left-sided weakness/decreased sensation and blurry vision: The neurological symptoms resolved as per patient. We consulted cardiology and neurology for their expert recommendations. Stroke was ruled out as per the history, examination, brain MRI. The mild electrolyte disturbances of hypokalemia do not explain patient's complaints on presentation. As per neurology, possible affective disorder, subacute encephalopathy. There was no evidence of atrial fibrillation in this hospital with occasional PACs. thyroid function tests unremarkable as well. Recommendations were to continue aspirin, paxil, and statin and discontinue hydrochlorothiazide. Psych consult was recommended for the possible affective discorder, but the patient and her daughter refused. Physical therapy evaluated the patient and assisted with ambulation. PT recommended home PT on discharge. 2. Hypokalemia: Significant hypo-kalemia was leading to fatigue. It was probably related to her recent resolved diarrhea. Patient has been on Lomotil & hydrochlorothiazide which was causing her low potassium. K was repleted with 4 runs of 10 mEq of potassium IV, and 40 mEq of potassium for 3 doses 3. Recent Lyme disease: The patient completed a two-week course of doxycycline. 4. GONZALO: Acute kidney injury upon admission, which improved. It was probably related to dehydration from diarrhea and hydrochlorothiazide. HCTZ was d/c at discharge Allergies: Coded Allergies: No Known Allergies (01/03/18) Significant Procedures: CXR: 1. No proximal large artery occlusion identified. 2. 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 3. Left upper lobe 4 mm lung nodule. According to the UPDATED 2017 Fleischner Society recommendations, the advised follow-up imaging for solid nodules < 6 mm is: LOW RISK PATIENT: No routine follow-up. HIGH RISK PATIENT: Optional CT at [address] ANGIOGRAM NECK AND HEAD: 1. No proximal large artery occlusion identified. 2. 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 3. Left upper lobe 4 mm lung nodule. According to the UPDATED 2017 Fleischner Society recommendations, the advised follow-up imaging for solid nodules < 6 mm is: LOW RISK PATIENT: No routine follow-up. HIGH RISK PATIENT: Optional CT at [address] HEAD WITHOUT CONTRAST: No acute intracranial pathology. MR BRAIN WITHOUT CONTRAST: - No acute intracranial findings. No acute infarcts. - There is global cerebral volume loss with a predilection for the high convexity parietal lobes. - Mild to moderate chronic microangiopathy. Cardiac ECHO: 1. Mild aortic stenosis is present with a PG 18 mmHg; MG 10 mmHg; BARTOLO 2.4 cm2. 2. Mitral leaflet thickening is present with moderate to severe anular calcification and minimal to mild mitral insufficiency with mild left atrial enlargement. 3. There is no pericardial fluid detected. 4. The left ventricular chamber size and ejection fraction are normal. 5. The right heart structures are grossly normal with minimal to mild tricuspid and pulmonic insufficiency. The RV systolic pressure was not accurately assessed. 6. Mild left ventricular diastolic dysfunction is present. 7. Normal left ventricular ejection fraction estimated at 60-65%. Pertinent Lab Results: Lyme titer : elevated but her Western blot test was negative for both IgG and IgM, as the patient finished 2 weeks of Doxycycline recently Trops: <0.01---> 0.02---->0.02 Disposition Summary Disposition Principal Diagnosis: Subacute encephalopathy Additional Diagnosis: Hypokalemia, thrombocytosis, recent lyme dx, Acute renal insufficiency, very mild , LBBB Discharge Disposition: home or self care Discharge Instructions General Discharge Information Code Status: Full Code Patient's Diet: heart healthy Patient's Activity: as tolerated Follow-Up Instructions/Appts: Watch for these problems: chest pain, weakness, loss of sensation, change or loss of vision, change or loss of consciousness, fever, chills: If yes to any of these, please visit your nearest emergency room Special Instructions: -Please follow up with your PCP 1 week after discharge -Please follow up with your neurologist 1 week after discharge -Please follow up with your electric track switch maintainer 1 week after discharge Medications at Discharge Discharge Medications: Stop taking the following medications: Olmesartan/Amlodipin/Hcthiazid (Tribenzor 40-10-25 MG Tablet) 40 MG-10 MG-25 MG TABLET ORAL DAILY Aspirin/Acetaminophen/Caffeine (Excedrin Extra Strength Caplet) 250 MG-250 MG-65 MG TABLET ORAL NEEDED as needed for HEADACHE Doxycycline Hyclate (Doxycycline Hyclate) 20 MG TABLET ORAL DAILY Continue taking these medications: Esomeprazole Magnesium (Nexium) 20 MG CAPSULE.DR 1 Capsule ORAL DAILY Comments: Last Taken: 01/05/18 Time: 8 AM RECIEVED PRILOSEC IN HOSPITAL Folic Acid (Folic Acid) 1 MG TABLET 1 Tablet ORAL DAILY Comments: DID NOT RECIEVE LORazepam (Ativan) 1 MG TAB 1 Tablet ORAL TWICE DAILY Comments: Last Taken: 01/05/18 Time: 9 AM Dicyclomine Hydrochloride (Bentyl) 10 MG/ML AMPUL 20 Milligram ORAL DAILY Comments: DID NOT RECIEVE Diphenoxylate HCl/Atropine (Lomotil 2.5-0.025 MG Tablet) 2.5 MG-0.025 MG TABLET 1 Tablet ORAL THREE TIMES DAILY as needed for STOMACH Comments: DID NOT RECIEVE Prednisone (Prednisone) 20 MG TABLET 1 Tablet ORAL DAILY Comments: Last Taken: 01/05/18 Time: 9 AM Paroxetine HCl (Paroxetine HCl) 30 MG TABLET 1 Tablet ORAL DAILY Comments: Last Taken: 01/05/18 Time: 9 AM Hydroxychlorquine (Plaquenil) 200 MG TABLET 1 Tablet ORAL DAILY Comments: DID NOT RECIEVE Atorvastatin Calcium (Lipitor) 20 MG TABLET 1 Tablet ORAL DAILY Comments: DID NOT RECIEVE IN HOSPITAL Start taking the following new medications: Aspirin (Aspirin*) 81 MG TAB.CHEW 81 Milligram ORAL DAILY Qty = 30 No Refills Instructions: . Comments: Last Taken: 01/05/18 Time: 9 AM Prochlorperazine Maleate (Compazine) 5 MG TABLET 1 Tablet ORAL TWICE DAILY as needed for nausea Qty = 10 No Refills Instructions: . Comments: Last Taken: 01/04/18 Time: 10:30 PM Amlodipine Besylate (Norvasc) 5 MG TABLET 1 Tablet ORAL DAILY Qty = 30 No Refills Instructions: . Comments: DID NOT RECIEVE Copies To: Sarwat Bass MD Instructions: . Comments: DID NOT RECIEVE Copies To: Sarwat Bass MD
== END 2018-01-05 13:35 | DRG 682 ==
LOC: ERH 00:53 → ERHI 02:28 → 1NO 02:28 → ENRESERV 03:00 → 1NO 04:36 → ENPENDDIS 01-05 09:40 → 1NO 01-05 13:35 → ENTRNSPT 01-05 13:36 → EDTRNSPT 01-05 13:37 → EDTRNSPTSTS 01-05 13:37 → CMPTRNSPT 01-05 14:16
PROVIDERS: Internal Medicine; Pediatrics
DX: N17.9 Acute kidney failure, unspecified (principal); G93.49 Other encephalopathy; E87.1 Hypo-osmolality and hyponatremia; A69.20 Lyme disease, unspecified; D68.61 Antiphospholipid syndrome; R51 Headache; M35.3 Polymyalgia rheumatica; E87.6 Hypokalemia; R53.83 Other fatigue; D47.3 Essential (hemorrhagic) thrombocythemia; I44.7 Left bundle-branch block, unspecified; K58.9 Irritable bowel syndrome, unspecified; T38.0X5A Adverse effect of glucocorticoids and synthetic analogues, initial encounter; K21.9 Gastro-esophageal reflux disease without esophagitis; F41.9 Anxiety disorder, unspecified; F32.9 Major depressive disorder, single episode, unspecified; N28.9 Disorder of kidney and ureter, unspecified; Z90.710 Acquired absence of both cervix and uterus; I10 Essential (primary) hypertension; R94.31 Abnormal electrocardiogram [ECG] [EKG]; E86.0 Dehydration; T50.2X5A Adverse effect of carbonic-anhydrase inhibitors, benzothiadiazides and other diuretics, initial encounter; I35.0 Nonrheumatic aortic (valve) stenosis
CPT/HCPCS: 1NSP; 70551; 36592; 71045; 82436; 93005; 93010; 93306; 96365; 96366; 97110-GO; 97116-GO; 97161-GP; 97165-GO; 99291; J0131; J0780; J1644; J2405; J3250; J3490; J7042